=== PATIENT | female | born 1945 | race Caucasian/White ===

== ENCOUNTER 2020-09-10 08:37 | Outpatient (REF) | payer MEDICARE, OTHER, SELFPAY ==
--- NOTE | 2020-09-10 | MM_ITS ---
EXAMINATION: MM SCREENING DIGITAL BREAST TOMOSYNTHESIS, BILATERAL CLINICAL INFORMATION: Screening. Asymptomatic. Family history breast cancer in daughter. Patient notes weight loss 2018. The lifetime risk of breast cancer based on the Tyrer-Cuzick Model is 4%. COMPARISON: Mammography: 09/05/2019, 08/27/2018, 08/09/2017,, 07/26/2017, 820 01/20/2020 TECHNIQUE: Digital breast tomosynthesis is performed in both the craniocaudal and mediolateral oblique views along with computer-aided detection (CAD). Synthesized 2D images are generated from the tomosynthesis. FINDINGS: The breasts are heterogeneously dense, which may obscure small masses (ACR BI-RADS breast composition Category c). There is a fibronodular parenchymal pattern. There is no abnormal calcification. The skin contours are smooth. There is increased parenchymal density in decreased breast size consistent with the weight loss noted in the clinical history. The left breast shows no interval mass or architectural abnormality. The right MLO view has 2 adjacent accentuated nodular asymmetric densities posterior upper quadrant around 7 cm from nipple. May be related to incompletely compressed glandular tissue. Patient will be recalled for additional imaging. IMPRESSION: 1. Right: Asymmetric densities posterior upper breast on MLO view, possibly incompletely compressed glandular tissue. 2. Left: No mammographic evidence of malignancy. ASSESSMENT: BI-RADS 0: Incomplete - Need Additional Imaging Evaluation RECOMMENDATION: 1. Additional views of the right breast (small spot MLO, standard ML). 2. Targeted ultrasound if warranted after review of the additional views. 3. Radiology department staff will contact the patient for additional imaging. This patient's information was entered into a reminder system with a target due date for their next mammogram.
== END 2020-09-10 08:38 | disposition home or self-care (01) ==
LOC: HO.MAMMO 08:37
PROVIDERS: PCP Internal Medicine; Visit Provider Internal Medicine
DX: Z12.31 Encounter for screening mammogram for malignant neoplasm of breast (principal)
CPT/HCPCS: 77063; 77067

== ENCOUNTER → 2020-09-15 09:59 | Outpatient (BNVA) | payer MEDICARE, OTHER, SELFPAY | PROVIDERS: PCP Internal Medicine; Referring Provider Internal Medicine; Visit Provider Nurse Practitioner Family | DX: I65.23 Occlusion and stenosis of bilateral carotid arteries (principal); I10 Essential (primary) hypertension; E78.5 Hyperlipidemia, unspecified; I71.4 Abdominal aortic aneurysm, without rupture; F17.200 Nicotine dependence, unspecified, uncomplicated; Z79.899 Other long term (current) drug therapy; Z71.6 Tobacco abuse counseling | CPT/HCPCS: 99214 ==

== ENCOUNTER 2020-09-16 12:27 | Outpatient (REF) | payer MEDICARE, OTHER, SELFPAY ==
--- NOTE | 2020-09-16 12:31 | MM_ITS ---
EXAMINATION: MM DIAGNOSTIC DIGITAL BREAST TOMOSYNTHESIS, RIGHT CLINICAL INFORMATION: Recall from screening for 2 adjacent accentuated nodular asymmetric densities upper right breast likely related to incompletely compressed glandular tissue. COMPARISON: Mammography: 09/10/2020, 09/05/2019, 08/27/2018 TECHNIQUE: Digital breast tomosynthesis is performed. 2D images are generated from the tomosynthesis. The following views are obtained: ML x2, spot MLO x2. FINDINGS: The breasts are heterogeneously dense, which may obscure small masses (ACR BI-RADS breast composition Category c). Additional views show no persistent asymmetric densities. No mass or architectural abnormality. Results are discussed with the patient at time of visit. MM/MM tomosynthesis added views R IMPRESSION: Additional views show no persistent asymmetric densities in targeted area. ASSESSMENT: BI-RADS 1: Negative RECOMMENDATION: Routine annual mammography screening. This patient's information was entered into a reminder system with a target due date for their next mammogram.
== END 2020-09-16 12:28 | disposition home or self-care (01) ==
LOC: HO.MAMMO 12:27
PROVIDERS: Visit Provider Internal Medicine
DX: R92.2 Inconclusive mammogram (principal); N64.89 Other specified disorders of breast
CPT/HCPCS: 77065

== ENCOUNTER → 2021-03-08 12:24 | Outpatient (BNVA) | payer MEDICARE, OTHER, SELFPAY | PROVIDERS: PCP Internal Medicine; Visit Provider Internal Medicine Cardiovascular Disease | DX: I10 Essential (primary) hypertension (principal); I65.29 Occlusion and stenosis of unspecified carotid artery; I71.4 Abdominal aortic aneurysm, without rupture; F17.200 Nicotine dependence, unspecified, uncomplicated; Z71.6 Tobacco abuse counseling | CPT/HCPCS: 99212 ==

== ENCOUNTER 2021-07-27 06:18 | Outpatient (REF) | payer MEDICARE, OTHER, SELFPAY ==
[2021-07-27 11:16] LABS: MANUAL DIFF FLAG NO
[2021-07-27 11:27] LABS: Basophils Absolute Auto 0.1 X10*3/uL (0.0-0.2); Basophils Percent Auto 0.9 % (0-2); Eosinophils Absolute Auto 0.6 X10*3/uL (0.0-0.4); Eosinophils Percent Auto 5.9 % (0-4); Hematocrit 38.3 % (37-47); Imm Gran Abs Auto 0.04 X10*3/uL (0.00-0.03); Imm Gran Pct Auto 0.4 % (0.0-0.4); Lymphocytes Absolute Auto 3.3 X10*3/uL (1.2-4.9); Lymphocytes Percent Auto 31.9 % (20-40); Mean Corpuscular HGB Conc 33.9 g/dl (31.0-35.0); Mean Corpuscular Hemoglobin 31.4 pg (27.0-33.0); Mean Corpuscular Volume 92.5 fL (80-98); Mean Platelet Volume 10.4 fL (9.4-12.3); Monocytes Absolute Auto 0.9 X10*3/uL (0.1-1.2); Monocytes Percent Auto 8.8 % (2-11); Neutrophils Absolute Auto 5.3 X10*3/uL (2.0-8.3); Neutrophils Percent Auto 52.1 % (45-73); Platelet Count 326 X10*3/uL (160-400); Red Blood Count 4.14 X10*6/uL (4.20-5.50); Red Cell Distribution Width 13.6 % (11.0-16.0); White Blood Count 10.2 X10*3/uL (4.8-10.8)
[2021-07-27 12:02] LABS: Alanine Aminotransferase 16 U/L (0-31); Albumin Level 4.2 g/dL (3.5-5.0); Alkaline Phosphatase 68 U/L (39-117); Anion Gap 16 (12-20); Aspartate Amino Transferase 24 U/L (5-31); Bilirubin Total 0.7 mg/dL (0.0-1.0); Blood Urea Nitrogen 17 mg/dL (9-16); Calcium 10.2 mg/dL (8.4-10.2); Carbon Dioxide 27 mmol/L (22-29); Chloride 100 mmol/L (96-108); Cholesterol 182 mg/dL; Estimated Glomerular Filt Rate 47; Glucose Random 106 mg/dL (60-115); HDL Cholesterol 45 mg/dL; LDL Cholesterol Calculated 104 mg/dl; Potassium 3.9 mmol/L (3.3-5.1); Sodium 139 mmol/L (135-145); Total Protein 7.1 g/dL (6.5-8.0); Triglycerides 168 mg/dL
[2021-07-27 12:08] LABS: Free T4 (Free Thyroxine) 1.18 ng/dL (0.71-1.85); Vitamin D 25-OH Total 70.2 ng/mL (>30)
[2021-07-27 12:36] LABS: Folate > 20.0 ng/mL (> or = 4.0); Vitamin B12 > 2000 pg/mL (200-900)
== END 2021-07-27 06:19 | disposition home or self-care (01) ==
LOC: HO.HMGCLDS 06:18
PROVIDERS: PCP Internal Medicine; Visit Provider Internal Medicine
DX: I10 Essential (primary) hypertension (principal); E78.00 Pure hypercholesterolemia, unspecified
CPT/HCPCS: 36415; 80053; 80061; 82306; 82607; 82746; 84439; 84443; 85025

== ENCOUNTER → 2021-08-23 09:08 | Outpatient (BNVA) | payer MEDICARE, OTHER, SELFPAY | PROVIDERS: PCP Internal Medicine; Referring Provider Internal Medicine; Visit Provider Internal Medicine Cardiovascular Disease | DX: I65.29 Occlusion and stenosis of unspecified carotid artery (principal); I10 Essential (primary) hypertension | CPT/HCPCS: 93005; 99212 ==

== ENCOUNTER 2021-10-30 06:26 | Outpatient (REF) | payer MEDICARE, OTHER, SELFPAY ==
[2021-10-30 11:45] LABS: MANUAL DIFF FLAG NO
[2021-10-30 11:48] LABS: Basophils Absolute Auto 0.1 X10*3/uL (0.0-0.2); Basophils Percent Auto 0.9 % (0-2); Eosinophils Absolute Auto 0.6 X10*3/uL (0.0-0.4); Eosinophils Percent Auto 5.6 % (0-4); Hematocrit 36.5 % (37.0-47.0); Imm Gran Abs Auto 0.04 X10*3/uL (0.00-0.03); Imm Gran Pct Auto 0.4 % (0.0-0.4); Lymphocytes Absolute Auto 2.7 X10*3/uL (1.2-4.9); Lymphocytes Percent Auto 25.7 % (20-40); Mean Corpuscular HGB Conc 32.9 g/dl (31.0-35.0); Mean Corpuscular Hemoglobin 30.5 pg (27.0-33.0); Mean Corpuscular Volume 92.9 fL (80.0-98.0); Mean Platelet Volume 10.4 fL (9.4-12.3); Monocytes Percent Auto 9.6 % (2-11); Neutrophils Absolute Auto 6.1 x10*3/uL (2.0-8.3); Neutrophils Percent Auto 57.8 % (45-73); Platelet Count 328 X10*3/uL (160-400); Red Blood Count 3.93 X10*6/uL (4.20-5.50); Red Cell Distribution Width 13.7 % (11.0-16.0); White Blood Count 10.6 X10*3/uL (4.8-10.8)
[2021-10-30 12:19] LABS: Alanine Aminotransferase 15 U/L (0-31); Albumin Level 4.1 g/dL (3.5-5.0); Alkaline Phosphatase 66 U/L (39-117); Anion Gap 16 (12-20); Aspartate Amino Transferase 22 U/L (5-31); Bilirubin Total 0.6 mg/dL (0.0-1.0); Blood Urea Nitrogen 31 mg/dL (9-16); Calcium 9.8 mg/dL (8.4-10.2); Carbon Dioxide 27 mmol/L (22-29); Chloride 99 mmol/L (96-108); Cholesterol 175 mg/dL; Estimated Glomerular Filt Rate 32; Glucose Random 106 mg/dL (60-115); HDL Cholesterol 46 mg/dL; LDL Cholesterol Calculated 104 mg/dl; Potassium 3.6 mmol/L (3.3-5.1); Sodium 138 mmol/L (135-145); Total Protein 7.2 g/dL (6.5-8.0); Triglycerides 125 mg/dL
== END 2021-10-30 06:27 | disposition home or self-care (01) ==
LOC: HO.HMGCLDS 06:26
PROVIDERS: PCP Internal Medicine; Visit Provider Internal Medicine
DX: E78.00 Pure hypercholesterolemia, unspecified (principal)
CPT/HCPCS: 36415; 80053; 80061; 85025

== ENCOUNTER 2021-11-07 09:42 | Outpatient (REF) | payer MEDICARE, OTHER, SELFPAY ==
[2021-11-07 12:05] LABS: Anion Gap 13 (12-20); Blood Urea Nitrogen 16 mg/dL (9-16); Calcium 9.5 mg/dL (8.4-10.2); Carbon Dioxide 25 mmol/L (22-29); Chloride 104 mmol/L (96-108); Estimated Glomerular Filt Rate 51; Glucose Random 98 mg/dL (60-115); Potassium 4.2 mmol/L (3.3-5.1); Sodium 138 mmol/L (135-145)
== END 2021-11-07 09:43 | disposition home or self-care (01) ==
LOC: HO.HMGCLDS 09:42
PROVIDERS: PCP Internal Medicine; Visit Provider Internal Medicine
DX: N28.9 Disorder of kidney and ureter, unspecified (principal)
CPT/HCPCS: 36415; 80048

== ENCOUNTER 2022-01-10 13:02 | Outpatient (REF) | payer MEDICARE, OTHER, SELFPAY ==
--- NOTE | ~2022-01-10 | CT_ITS ---
EXAMINATION: CT CHEST SCREENING CLINICAL INFORMATION: Current smoker. 60 pack year history. COMPARISON: Previous chest CT May 2020 TECHNIQUE: Multidetector volumetric CT imaging of the chest is performed without contrast using low dose technique. Additional 2D coronal and sagittal reformatted images and axial 3D maximum intensity projection (MIP) images are generated on the CT workstation. This CT examination was performed using dose optimization techniques as appropriate, variously including the following: *Automated exposure control *Adjustment of mA and/or kV according to patient size (this includes techniques or standardized protocols for targeted exams where dose is matched to indication/reason for exam; i.e. extremities or head) *Use of iterative reconstruction technique DLP: 36 mGy-cm FINDINGS: LUNGS: There is evidence of severe emphysema. There is biapical pleural and parenchymal scarring and calcifications that is stable. There is a new 5 mm right upper lobe nodule axial image 163 series 5. There are new abnormal clustered linear parenchymal densities in the right upper lobe and slight nodular component. Largest nodular component measures 5 mm axial image 183 series 5. There is a new heterogeneous or semisolid peripheral or subpleural nodule in the anterior left upper lobe measuring 6 mm axial image 194 series 5. Pulmonary nodules are otherwise stable. MEDIASTINUM: The heart does not appear enlarged. There is coronary artery calcification. The thoracic aorta is tortuous and upper normal in size. There is no pericardial effusion. There are no enlarged hilar or mediastinal lymph nodes. PLEURA: There is no pleural effusion. No pleural mass or thickening. AXILLA: No lymphadenopathy. UPPER ABDOMEN: There is an abdominal aortic aneurysm and aortic stent graft. This is only partially visualized. OSSEOUS STRUCTURES: There are degenerative changes of the spine and scoliosis. CT/CT lung screening IMPRESSION: Severe emphysema. Stable biapical pleural-parenchymal scarring and calcification. New bilateral upper lobe nodules, largest a semisolid nodule measuring 6 mm in the left upper lobe. Otherwise pulmonary nodules are stable. Coronary artery calcification. Tortuous and upper normal-size thoracic aorta. ASSESSMENT: Lung-RADS category 3: Probably Benign RECOMMENDATION: Six-month low-dose chest CT follow-up recommended.
== END 2022-01-10 13:03 | disposition home or self-care (01) ==
LOC: HO.CT 13:02
PROVIDERS: PCP Internal Medicine; Visit Provider Physician Assistant Medical
DX: Z12.2 Encounter for screening for malignant neoplasm of respiratory organs (principal); Z87.891 Personal history of nicotine dependence
CPT/HCPCS: 71271

== ENCOUNTER → 2022-08-27 09:07 | Outpatient (BNVA) | payer MEDICARE, OTHER, SELFPAY | PROVIDERS: PCP Internal Medicine; Referring Provider Internal Medicine; Visit Provider Internal Medicine Cardiovascular Disease | DX: I10 Essential (primary) hypertension (principal); I65.23 Occlusion and stenosis of bilateral carotid arteries; F17.210 Nicotine dependence, cigarettes, uncomplicated; Z79.82 Long term (current) use of aspirin; Z79.899 Other long term (current) drug therapy | CPT/HCPCS: 93005; 99212 ==

== ENCOUNTER 2022-08-28 06:12 | Outpatient (REF) | payer MEDICARE, OTHER, SELFPAY ==
[2022-08-28 11:59] LABS: Anion Gap 17 (12-20); Blood Urea Nitrogen 16 mg/dL (9-16); Calcium 9.5 mg/dL (8.4-10.2); Carbon Dioxide 24 mmol/L (22-29); Chloride 104 mmol/L (96-108); Estimated Glomerular Filt Rate 49; Glucose Random 119 mg/dL (60-115); Potassium 4.4 mmol/L (3.3-5.1); Sodium 141 mmol/L (135-145)
== END 2022-08-28 06:13 | disposition home or self-care (01) ==
LOC: HO.HMGCLDS 06:12
PROVIDERS: PCP Internal Medicine; Visit Provider Internal Medicine Cardiovascular Disease
DX: I10 Essential (primary) hypertension (principal)
CPT/HCPCS: 36415; 80048

== ENCOUNTER 2022-08-29 10:43 | Outpatient (REF) | payer MEDICARE, OTHER, SELFPAY ==
--- NOTE | ~2022-08-29 | CT_ITS ---
EXAMINATION: CT CHEST SCREENING CLINICAL INFORMATION: Current smoker. 60 pack year history. COMPARISON: Previous chest CT December 2021 TECHNIQUE: Multidetector volumetric CT imaging of the chest is performed without contrast using low dose technique. Additional 2D coronal and sagittal reformatted images and axial 3D maximum intensity projection (MIP) images are generated on the CT workstation. This CT examination was performed using dose optimization techniques as appropriate, variously including the following: *Automated exposure control *Adjustment of mA and/or kV according to patient size (this includes techniques or standardized protocols for targeted exams where dose is matched to indication/reason for exam; i.e. extremities or head) *Use of iterative reconstruction technique DLP: 107 mGy-cm FINDINGS: LUNGS: The previously identified 5 mm right upper lobe nodule that was new on December 2021 exam is no longer seen. The previously identified abnormal parenchymal density with 5 mm nodular component in the right upper lobe that was new on December 2021 exam is no longer seen. The previously identified heterogeneous peripheral anterior segment left upper lobe nodule that was new on December 2021 exam appears decreased in size now measuring 2 x 5 mm axial image 212 series 6 compared to 5 x 5 mm on December 2021 exam. There is a new 4 mm left lower lobe nodule axial image 257 series 6. Otherwise bilateral pulmonary nodules are stable, largest a partially calcified pleural and parenchymal density in the lateral right upper lobe with some calcifications. Nodular component measures 7 mm axial image 146 series 6. There is biapical pleural and parenchymal scarring and calcification that is stable. There is evidence of severe emphysema. No endobronchial or endotracheal lesion. MEDIASTINUM: Normal thyroid gland. Normal heart size. Upper normal-size proximal thoracic aorta. Mild dilatation of the distal thoracic aorta measuring 3.5 x 3.6 cm. This is not appreciably changed from recent exams but this is gradually increasing compared to remote older exams, for example measuring 3 x 3.3 cm 04/13/2019. No enlarged hilar or mediastinal lymph nodes. CORONARY ARTERY CALCIFICATION: Mild PLEURA: There is no pleural effusion. No pleural mass or thickening. AXILLA: No lymphadenopathy. UPPER ABDOMEN: Abdominal aortic stent graft partially visualized. There is question of a small stone in the upper pole of the left kidney. There may be diverticulosis of the colon. OSSEOUS STRUCTURES: Thoracolumbar scoliosis and degenerative changes. CT/CT lung screen follow up IMPRESSION: Severe emphysema. The 2 right upper lobe nodules that were new on most recent chest CT exam December 2021 are no longer seen. There is interval decrease in size in the left upper lobe nodule that was new compared to December 2021 exam. New 4 mm left lower lobe nodule. Otherwise bilateral pulmonary nodules are stable. Severe emphysema. Stable biapical pleural and parenchymal scarring. ASSESSMENT: Lung-RADS category 2: Benign RECOMMENDATION: Annual low-dose chest CT follow-up recommended.
== END 2022-08-29 10:44 | disposition home or self-care (01) ==
LOC: HO.CT 10:43
PROVIDERS: Visit Provider Physician Assistant Medical
DX: Z12.2 Encounter for screening for malignant neoplasm of respiratory organs (principal); Z87.891 Personal history of nicotine dependence
CPT/HCPCS: 71250

== ENCOUNTER → 2022-09-14 08:40 | Outpatient (BNVA) | payer MEDICARE, OTHER, SELFPAY | PROVIDERS: PCP Internal Medicine; Visit Provider Surgery | DX: R91.1 Solitary pulmonary nodule (principal); Z87.891 Personal history of nicotine dependence | CPT/HCPCS: Q3014 ==

== ENCOUNTER 2022-11-06 06:07 | Outpatient (REF) | payer MEDICARE, OTHER, SELFPAY ==
[2022-11-06 11:52] LABS: MANUAL DIFF FLAG NO
[2022-11-06 12:22] LABS: Basophils Absolute Auto 0.1 X10*3/uL (0.0-0.2); Basophils Percent Auto 0.9 % (0-2); Eosinophils Absolute Auto 0.4 X10*3/uL (0.0-0.4); Eosinophils Percent Auto 4.3 % (0-4); Hematocrit 40.4 % (37.0-47.0); Hemoglobin 13.2 g/dl (12.0-16.0); Imm Gran Abs Auto 0.02 X10*3/uL (0.00-0.03); Imm Gran Pct Auto 0.2 % (0.0-0.4); Lymphocytes Absolute Auto 2.4 X10*3/uL (1.2-4.9); Mean Corpuscular HGB Conc 32.7 g/dl (31.0-35.0); Mean Corpuscular Hemoglobin 30.6 pg (27.0-33.0); Mean Corpuscular Volume 93.7 fL (80.0-98.0); Mean Platelet Volume 10.3 fL (9.4-12.3); Monocytes Absolute Auto 0.8 X10*3/uL (0.1-1.2); Monocytes Percent Auto 8.3 % (2-11); Neutrophils Absolute Auto 5.7 x10*3/uL (2.0-8.3); Neutrophils Percent Auto 60.3 % (45-73); Platelet Count 318 X10*3/uL (160-400); Red Blood Count 4.31 X10*6/uL (4.20-5.50); Red Cell Distribution Width 13.7 % (11.0-16.0); White Blood Count 9.4 X10*3/uL (4.8-10.8)
[2022-11-06 13:04] LABS: Alanine Aminotransferase 18 U/L (0-31); Albumin Level 4.2 g/dL (3.5-5.0); Alkaline Phosphatase 73 U/L (39-117); Anion Gap 12 (12-20); Aspartate Amino Transferase 27 U/L (5-31); Bilirubin Total 0.5 mg/dL (0.0-1.0); Blood Urea Nitrogen 20 mg/dL (9-16); Carbon Dioxide 28 mmol/L (22-29); Chloride 107 mmol/L (96-108); Cholesterol 177 mg/dL; Estimated Glomerular Filt Rate 54; Free T4 (Free Thyroxine) 1.11 ng/dL (0.71-1.85); Glucose Random 108 mg/dL (60-115); Potassium 4.7 mmol/L (3.3-5.1); Sodium 142 mmol/L (135-145); Thyroid Stimulating Hormone 4.07 uIU/mL (0.32-4.0); Total Protein 7.2 g/dL (6.5-8.0); Triglycerides 124 mg/dL; Vitamin D 25-OH Total 70.2 ng/mL (>30)
[2022-11-06 13:12] LABS: Folate 18.8 ng/mL (> or = 4.0); Vitamin B12 > 2000 pg/mL (200-900)
[2022-11-06 13:39] LABS: HDL Cholesterol 51 mg/dL; LDL Cholesterol Calculated 102 mg/dl
== END 2022-11-06 06:08 | disposition home or self-care (01) ==
LOC: HO.HMGCLDS 06:07
PROVIDERS: PCP Internal Medicine; Visit Provider Internal Medicine
DX: E78.00 Pure hypercholesterolemia, unspecified (principal)
CPT/HCPCS: 36415; 80053; 80061; 82306; 82607; 82746; 84439; 84443; 85025

== ENCOUNTER 2022-12-20 08:33 | Outpatient (REF) | payer MEDICARE, OTHER, SELFPAY ==
--- NOTE | ~2022-12-20 | MM_ITS ---
EXAMINATION: BONE DENSITOMETRY CLINICAL INDICATION: Osteoporosis. COMPARISON: Previous BD dated 09/09/2018 and baseline BD dated 10/13/2007. CT chest 06/16/2020. TECHNIQUE: Using a [employer] DXA System (software version: 13.1) manufactured by [employer], dual-energy x-ray absorptiometry was performed of the lumbar spine and left hip. The images are of good technical quality. Summary results are attached. FINDINGS: AP SPINE L1-L4: There is an intra-aortic stent graft seen overlying the left paralumbar region. Current: BMD 0.540 g/cm2, Z-score -2.5, T-score -5.3, osteoporosis, 21.4% decrease from previous, 28.3% decrease from baseline (<5% change is not significant). Prior: BMD 0.687 g/cm2. Baseline: BMD 0.753 g/cm2. LEFT FEMUR, NECK: Current: BMD 0.605 g/cm2, Z-score -0.4, T-score -3.1, osteoporosis. Prior: BMD 0.739 g/cm2. Baseline: BMD 0.774 g/cm2. LEFT FEMUR, TOTAL: Current: BMD 0.626 g/cm2, Z-score -0.5, T-score -3.0, osteoporosis, 13.4% decrease from previous, 21.6% decrease from baseline (<5% change is not significant). Prior: BMD 0.723 g/cm2. Baseline: BMD 0.798 g/cm2. IDENTIFIED RISK FACTORS: Osteoporosis. Current smoker. Low body weight for height. Secondary osteoporosis (early menopause). HISTORY OF FRACTURE: Humerus. MEDICATIONS: Vitamin D. MM/XR DEXA axial skeleton IMPRESSION: 1. DIAGNOSIS: Osteoporosis based on the lowest T-score value of -5.3 in the lumbar spine applying World Health Organization criteria. 2. 10-YEAR FRACTURE RISK PREDICTION, FRAX: According to the guidelines, FRAX calculation should only be performed on patients in the osteopenia bone density category. Therefore, FRAX was not performed on this patient.? 3. Treatment Recommendations: NOF guidelines recommend consideration for treatment in postmenopausal women and men age 50 and older presenting with the following: -A hip or vertebral (clinical or morphometric) fracture. -T-score less than or equal to -2.5 at the femoral neck or spine after appropriate evaluation to exclude secondary causes. -Low bone mass at the hip or spine and a 10-year fracture probability by FRAX of greater than or equal to 3% for hip fracture or greater than or equal to 20% for major osteoporotic fracture based on the [place] adapted WHO algorithm. 4. Other Recommendations: All treatment decisions require clinical judgment and consideration of individual patient factors, including patient preferences, comorbidities, previous drug use, risk factors not captured in the FRAX model (e.g. frailty, falls, vitamin D deficiency, increased bone turnover, interval significant decline in bone density) and possible under or overestimation of fracture risk by FRAX. Additional medical evaluation for secondary cause of low bone mineral density may be appropriate. FUTURE SCAN RECOMMENDATION: People with diagnosed cases of osteoporosis or at high risk for fracture should have regular bone mineral density tests. For patients eligible for Medicare, routine testing is allowed once every 2 years. The testing frequency can be increased to one year for patients who have rapidly progressing disease, those who are receiving or discontinuing medical therapy to restore bone mass, or have additional risk factors.
== END 2022-12-20 08:34 | disposition home or self-care (01) ==
LOC: HO.MAMMO 08:33
PROVIDERS: PCP Internal Medicine; Visit Provider Internal Medicine
DX: M81.0 Age-related osteoporosis without current pathological fracture (principal)
CPT/HCPCS: 77080

== ENCOUNTER 2023-02-11 06:06 | Outpatient (REF) | payer MEDICARE, OTHER, SELFPAY ==
[2023-02-11 12:53] LABS: Alanine Aminotransferase 18 U/L (0-31); Albumin Level 4.1 g/dL (3.5-5.0); Alkaline Phosphatase 70 U/L (39-117); Anion Gap 16 (12-20); Aspartate Amino Transferase 28 U/L (5-31); Bilirubin Total 0.6 mg/dL (0.0-1.0); Blood Urea Nitrogen 21 mg/dL (9-16); Calcium 9.7 mg/dL (8.4-10.2); Carbon Dioxide 27 mmol/L (22-29); Chloride 103 mmol/L (96-108); Cholesterol 150 mg/dL; Estimated Glomerular Filt Rate 43; Glucose Random 105 mg/dL (60-115); HDL Cholesterol 49 mg/dL; LDL Cholesterol Calculated 79 mg/dl; Potassium 4.6 mmol/L (3.3-5.1); Sodium 141 mmol/L (135-145); Total Protein 7.1 g/dL (6.5-8.0); Triglycerides 110 mg/dL
[2023-02-11 12:55] LABS: Free T4 (Free Thyroxine) 1.01 ng/dL (0.71-1.85)
== END 2023-02-11 06:07 | disposition home or self-care (01) ==
LOC: HO.HMGCLDS 06:06
PROVIDERS: PCP Internal Medicine; Visit Provider Internal Medicine
DX: R79.89 Other specified abnormal findings of blood chemistry (principal); E78.00 Pure hypercholesterolemia, unspecified
CPT/HCPCS: 36415; 80053; 80061; 84439; 84443

== ENCOUNTER → 2023-03-04 09:05 | Outpatient (BNVA) | payer MEDICARE, OTHER, SELFPAY | PROVIDERS: PCP Internal Medicine; Referring Provider Internal Medicine; Visit Provider Internal Medicine Cardiovascular Disease | DX: I65.23 Occlusion and stenosis of bilateral carotid arteries (principal); I10 Essential (primary) hypertension; F17.210 Nicotine dependence, cigarettes, uncomplicated | CPT/HCPCS: 99212 ==

== ENCOUNTER 2023-05-13 09:24 | Outpatient (REF) | payer MEDICARE, MEDICAID, SELFPAY ==
[2023-05-13 12:16] LABS: Free T4 (Free Thyroxine) 1.15 ng/dL (0.71-1.85); Thyroid Stimulating Hormone 2.93 uIU/mL (0.32-4.0)
== END 2023-05-13 09:25 | disposition home or self-care (01) ==
LOC: HO.HMGCLDS 09:24
PROVIDERS: PCP Internal Medicine; Visit Provider Internal Medicine
DX: R94.6 Abnormal results of thyroid function studies (principal)
CPT/HCPCS: 36415; 84439; 84443

== ENCOUNTER 2023-09-12 15:29 | Outpatient (REF) | payer MEDICARE, SELFPAY ==
--- NOTE | ~2023-09-12 | CT_ITS ---
EXAMINATION: CT CHEST SCREENING CLINICAL INFORMATION: 61 pack year smoking history COMPARISON: Previous CTs, most recent, 08/29/2022 TECHNIQUE: Multidetector volumetric CT imaging of the chest is performed without contrast using low dose technique. Additional 2D coronal and sagittal reformatted images and axial 3D maximum intensity projection (MIP) images are generated on the CT workstation. This CT examination was performed using dose optimization techniques as appropriate, variously including the following: *Automated exposure control *Adjustment of mA and/or kV according to patient size (this includes techniques or standardized protocols for targeted exams where dose is matched to indication/reason for exam; i.e. extremities or head) *Use of iterative reconstruction technique DLP: 32 mGy-cm FINDINGS: FLIGHT NURSE: Cachexia. Emphysema. Thoracolumbar scoliosis and abdominal aortic stent graft. LUNGS: Trachea and bronchi are patent. Advanced centrilobular emphysema. Unchanged biapical pleural parenchymal scarring. Right upper lobe lateral pleural parenchymal nodular scarring is unchanged. 5 mm left upper lobe and 4 mm left lower lobe nodules on previous study are no longer seen. MEDIASTINUM: No pathologic lymphadenopathy. Heart is not enlarged. Degree of coronary calcifications: Moderate. No pericardial effusion. Atherosclerotic calcifications ectatic thoracic aorta. Nonenlarged pulmonary arteries. PLEURA: There is no pleural effusion. No pleural mass or thickening. AXILLA: No lymphadenopathy. UPPER ABDOMEN: Aortic stent graft. Punctate left upper pole nonobstructing calculus versus vascular calcification. OSSEOUS STRUCTURES: Thoracolumbar scoliosis. No suspicious osseous lesions. CT/CT lung screening IMPRESSION: Stable advanced emphysema and pleural parenchymal scarring. Resolution of previous lung nodules. ASSESSMENT: Lung-RADS category 1: Negative RECOMMENDATION: Routine annual low-dose CT screening in 12 months.
== END 2023-09-12 15:30 | disposition home or self-care (01) ==
LOC: HO.CT 15:29
PROVIDERS: PCP Internal Medicine; Visit Provider Surgery
DX: Z12.2 Encounter for screening for malignant neoplasm of respiratory organs (principal); Z87.891 Personal history of nicotine dependence
CPT/HCPCS: 71271

== ENCOUNTER 2023-11-22 08:38 | Outpatient (AMB) | payer MEDICARE, SELFPAY ==
[2023-11-22 08:39] VITALS: BP 122/80; PULSE 62; BMI 12.8
--- NOTE | 2023-11-22 08:39 | A.OFFPC_ITS ---
Vital Signs 11/22/23 08:39 Height 5 ft 3 in Weight 72 lb 0.8 oz BMI 12.8 BP 122/80 Blood Pressure Location Lt brachial Position Sitting Pulse 62 Pulse Source Pulse Oximeter Oxygen Delivery Method Room Air Intake Visit Reasons: smoker, COPD, HTN Application Packager Required: No Allergies No Known Allergies [No Known Allergies*] Allergy (Verified 11/22/23 08:40) Medication List - Last Reconciled 11/22/23 by Camilo Quiñones MD amlodipine 10 mg PO DAILY aspirin (Adult Low Dose Aspirin) 81 mg PO DAILY atorvastatin 80 mg PO DAILY benzonatate 200 mg PO BID-TID PRN cholecalciferol (vitamin D3) 25 mcg PO DAILY ezetimibe 10 mg PO DAILY folic acid 0.8 mg PO DAILY vitamin [id number] acid 1,000-400 mcg shaggy sublingual Tobacco use date assessed: 11/22/23 Fall risk assessment: No Falls in past year Last assessed Fall Risk: 11/22/23 HPI smoker, COPD, HTN HPI Details 78-year-old female smoker with COPD hype rcholesterolemia hypertension carotid stenosis last seen in April 2023. Patient is here for follow-up up-to-date with bone density showing osteoporosis. With smoking history CT scan follow-up August 2023 showing stable advanced emphysema and pleural parenchymal scarring resolution of previous lung nodules.- sick , coughing 1 week ago congested. mno sore throat, has been productive- last cigarette this am. [facility] Medical History (Updated 11/22/23 @ 09:02 by Camilo Quiñones MD) Osteoporosis Colonoscopy refused Mammogram declined Personal history of nicotine dependence Underweight Renal calculi Fracture, humerus Hypercholesterolemia HTN (hypertension) Carotid stenosis Osteoporosis (~2013) AAA (abdominal aortic aneurysm) Surgical History H/O tubal ligation History of cataract surgery History of AAA (abdominal aortic aneurysm) repair (~2019) Family History (Updated 05/24/23 @ 08:26 by Kimberly Manzo CMA) Father Medical history unknown Mother Cancer Brother No problems noted. Brother No problems noted. Brother No problems noted. Sister No problems noted. Sister No problems noted. Sister No problems noted. Daughter No problems noted. Daughter No problems noted. Daughter No problems noted. Social History (Updated 03/04/23 @ 09:19 by JOCELIN Salamanca) Housing: Apartment Alcohol intake: current Alcohol intake frequency: holidays/special occasions only Patient Tobacco Use Status: Current everyday Tobacco user Tobacco use type: Cigarette Cigarette Packs Per Day: 0.5 Cigarettes Per Day: 10 Years Smoked: 50 +/- Packs Per Year: 0 Packs per year/per ci.00 e-Cigarette/Vaping Use: Never Used Second Hand Smoke Exposure: No service: No Current occupational status: retired Cognitive needs: No Hearing needs: No Vision needs: Yes Questionnaire Thrive Questionnaire Date Thrive assessed: 02/14/23 AUDIT C Alcohol Use Questionnaire (AUDIT-C) 1. How often do you have a drink containing alcohol?: Monthly or less 2. How many drinks containing alcohol do you have on a typical day when you are drinking?: 1 or 2 3. How often do you have six or more drinks on one occasion?: Never Total Score: 1 MESSI-7 AMB Questionnaire MESSI-7 Date MESSI - 7 assessed: 05/24/23 Source: Developed by Drs. Ramesh Youngblood, Melyssa Bergeron, Oliver Hendricks and colleagues, with an educational saw from [employer]. Physical exam (Primary Care) Vital Signs: Last Vital Signs Pulse 62 11/22/23 08:39 BP 122/80 11/22/23 08:39 Oxygen Delivery Method Room Air 11/22/23 08:39 BMI result Body Mass Index 12.8 Tobacco/Smoking Status: Tobacco use Status Tobacco use date assessed 11/22/23 11/22/23 08:42 Patient Tobacco Use Status Current everyday Tobacco 11/22/23 08:42 Tobacco use type Cigarette 11/22/23 08:42 e-Cigarette/Vaping Use Never Used 11/22/23 08:42 Thrive Assessment: Date of Thrive Assessment Date Thrive assessed 02/14/23 11/22/23 08:42 Const General: alert; No acute distress Eyes Conjunctivae: conjunctivae normal Resp Auscultation: clear to auscultation bilaterally Cardio Rate: regular rate Rhythm: regular rhythm GI Inspection: Yes normal to inspection Extrem General: Yes normal to inspection and No edema Assessment and Plan Assessment & Plan (1) COPD (chronic obstructive pulmonary disease): Code(s): J44.9 - Chronic obstructive pulmonary disease, unspecified Plan: Patient strongly advised to stop smoking! Continue with monitoring as the patient has not been using any inhalers (2) Tobacco abuse: Comment: Seven cigarettes a day January 2023, CT scan August 2023 Code(s): Z72.0 - Tobacco use Plan: Patient is strongly advised to stop smoking. Patient on the lung cancer screening program and up-to-date August 2023 (3) Hypercholesterolemia: Code(s): E78.00 - Pure hypercholesterolemia, unspecified Plan: Avoid fried foods, chicken skin, eggs, butter margarine, pastries and meat. Be it pork or beef they have a lot of cholesterol on Zetia right now and atorvastatin 80 mg once a day LDL goal of less than 130 (4) HTN (hypertension): Code(s): I10 - Essential (primary) hypertension Qualifiers: Hypertension type: essential hypertension Qualified Code(s): I10 - Essential (primary) hypertension Plan: Continue with blood pressure medication. Decrease salt intake and exercise continue with amlodipine 10 mg once a day (5) Osteoporosis: Onset Date: ~2013 Comment: (Bone Dexa Lumbar T-score -4.1 09/09/18) November 2022 Code(s): M81.0 - Age-related osteoporosis without current pathological fracture Plan: Keep active take vitamin-D and calcium rich foods. (6) Upper respiratory infection: Code(s): J06.9 - Acute upper respiratory infection, unspecified Orders: Orders Lipid Panel Today E78.00 - Pure hypercholesterolemia, unspecified Vitamin B12 and Folate Today E78.00 - Pure hypercholesterolemia, unspecified Vitamin D 25-OH Total Today E78.00 - Pure hypercholesterolemia, unspecified Comprehensive Met. Panel Today E78.00 - Pure hypercholesterolemia, unspecified Complete Blood Count Auto Diff Today E78.00 - Pure hypercholesterolemia, unspecified Free T4 (Free Thyroxine) Today E78.00 - Pure hypercholesterolemia, unspecified Thyroid Stimulating Hormone Today E78.00 - Pure hypercholesterolemia, unspecified Medications: New benzonatate 200 mg PO BID-TID PRN 20 caps 0RF cough J06.9 - Acute upper respiratory infection, unspecified Refilled atorvastatin 80 mg PO DAILY 90 tabs 3RF E78.00 - Pure hypercholesterolemia, unspecified ezetimibe 10 mg PO DAILY 90 tabs 1RF E78.00 - Pure hypercholesterolemia, unspecified Coding Level of Care Code Est Pt Level 4 (56135) Diagnoses COPD (chronic obstructive pulmonary disease) J44.9 Tobacco abuse Z72.0 Hypercholesterolemia E78.00 Essential hypertension I10 Hypertension type: essential hypertension Osteoporosis M81.0 Upper respiratory infection J06.9
== END 2023-11-22 09:05 | disposition home or self-care (01) ==
PROVIDERS: PCP Internal Medicine; Visit Provider Internal Medicine
DX: J44.9 Chronic obstructive pulmonary disease, unspecified (principal); Z72.0 Tobacco use; E78.00 Pure hypercholesterolemia, unspecified; I10 Essential (primary) hypertension; M81.0 Age-related osteoporosis without current pathological fracture; J06.9 Acute upper respiratory infection, unspecified
CPT/HCPCS: 99214

== ENCOUNTER 2024-03-10 09:14 | Outpatient (AMB) | payer MEDICARE, SELFPAY ==
[2024-03-10 09:14] VITALS: BP 112/70; PULSE 111; TEMP 36.4; O2SAT 97; BMI 13.3
--- NOTE | 2024-03-10 09:14 | MHC.OFFWIV ---
Intake Vital Signs 03/10/24 09:14 Height 5 ft 3 in Weight 75 lb BMI 13.3 BP 112/70 Blood Pressure Location Lt brachial Position Sitting Pulse 111 H Pulse Source Pulse Oximeter Temp 97.6 F Temp Source Temporal Artery Scan Pulse Oximetry (%) 97 Oxygen Delivery Method Room Air Intake Visit Reasons: EP RT side neck pain radiates down arm (lobby) Intake Note: pt is here today for rt side neck pain radiates down arm started 2 weeks ago Patient Tobacco Use Status: Current everyday Tobacco user Allergies No Known Allergies [No Known Allergies*] Allergy (Verified 03/10/24 09:38) Medication List - Last Reconciled 03/10/24 by Zafar Glynn MD amlodipine 10 mg PO DAILY aspirin (Adult Low Dose Aspirin) 81 mg PO DAILY atorvastatin 80 mg PO DAILY cholecalciferol (vitamin D3) 25 mcg PO DAILY ezetimibe 10 mg PO DAILY folic acid 0.8 mg PO DAILY vitamin Z78-wxpdi acid 1,000-400 mcg shaggy sublingual Do you need a note to return to daycare/school/sports/work: No HPI EP RT side neck pain radiates down arm (lobby) HPI Details 79-year-old female presents to the office for a sick visit. Patient is reporting symptoms of pain in the neck and right side of the arm and shoulder for the past 2 weeks. Symptoms started on its own 2 weeks ago. She reports stiffness on the right side of her neck. Reports symptoms of pain in the elbow and forearm. Able to function and do all activities of living. No fall or trauma. [facility] Medical History (Updated 11/22/23 @ 09:02 by Camilo Quiñones MD) Osteoporosis Colonoscopy refused Mammogram declined Personal history of nicotine dependence Underweight Renal calculi Fracture, humerus Hypercholesterolemia HTN (hypertension) Carotid stenosis Osteoporosis (~2013) AAA (abdominal aortic aneurysm) Surgical History H/O tubal ligation History of cataract surgery History of AAA (abdominal aortic aneurysm) repair (~2019) Family History (Updated 05/24/23 @ 08:26 by Kimberly Manzo CMA) Father Medical history unknown Mother Cancer Brother No problems noted. Brother No problems noted. Brother No problems noted. Sister No problems noted. Sister No problems noted. Sister No problems noted. Daughter No problems noted. Daughter No problems noted. Daughter No problems noted. Social History (Updated 03/04/23 @ 09:19 by JOCELIN Salamanca) Housing: Apartment Alcohol intake: current Alcohol intake frequency: holidays/special occasions only Patient Tobacco Use Status: Current everyday Tobacco user Tobacco use type: Cigarette Cigarette Packs Per Day: 0.5 Cigarettes Per Day: 10 Years Smoked: 50 +/- e-Cigarette/Vaping Use: Never Used Second Hand Smoke Exposure: No service: No Current occupational status: retired Cognitive needs: No Hearing needs: No Vision needs: Yes Physical Exam Vital Signs: Last Vital Signs Temp 97.6 F 03/10/24 09:14 Pulse 111 H 03/10/24 09:14 BP 112/70 03/10/24 09:14 Pulse Ox 97 03/10/24 09:14 Oxygen Delivery Method Room Air 03/10/24 09:14 BMI result Body Mass Index 13.3 Const General: cooperative and healthy appearing Nutritional Appearance: well nourished Orientation/consciousness: patient oriented x3 Limitations: no limitations HEENT Head: Yes normal to inspection Eyes General: appearance normal, both eyes and all related structures Neck Neck: Yes normal visual inspection Chest Chest palpation & inspection: normal palpation of entire chest wall Resp Effort & Inspection: normal respiratory effort Neuro General: patient oriented x3 Extrem Other: Neck: No C-spine tenderness. Full range of motion of the neck. Right shoulder: Full range of motion including internal and external rotation. Assessment & Plan Assessment & Plan (1) Sprain of right shoulder: Code(s): S43.401A - Unspecified sprain of right shoulder joint, initial encounter Plan X-ray images personally reviewed by me. Evidence of old healed surgical neck fracture. Meloxicam and cyclobenzaprine called in. Advised to take the medications with food. Heating pad suggested. If sx do not improve, to follow up here. Orders: Orders XR shoulder RT min 2V Today S43.401A - Unspecified sprain of right shoulder joint, initial encounter Coding Level of Care Code Est Pt Level 4 (71859) Diagnoses Sprain of right shoulder S43.401A
== END 2024-03-10 10:32 | disposition home or self-care (01) ==
PROVIDERS: PCP Internal Medicine; Visit Provider Internal Medicine
DX: S43.401A Unspecified sprain of right shoulder joint, initial encounter (principal)
CPT/HCPCS: 99214

== ENCOUNTER 2024-03-10 09:32 | Outpatient (REF) | payer MEDICARE, SELFPAY ==
--- NOTE | ~2024-03-10 | XR_ITS ---
EXAMINATION: XR SHOULDER, RIGHT CLINICAL INFORMATION: Right shoulder sprain COMPARISON: Right shoulder 06/02/2014, report only TECHNIQUE: 3 views of of the right shoulder. FINDINGS: There is an old healed fracture of the right humeral neck. No acute fracture or dislocation is seen. Some mild degenerative changes are present at the AC joint. No significant narrowing is seen of the glenohumeral joint. No rib fractures are seen. XR/XR shoulder RT min 2V IMPRESSION: Old healed right humeral neck fracture. No acute finding.
== END 2024-03-10 09:33 | disposition home or self-care (01) ==
LOC: HO.HMGCX 09:32
PROVIDERS: PCP Internal Medicine; Visit Provider Internal Medicine
DX: S43.401A Unspecified sprain of right shoulder joint, initial encounter (principal); X58.XXXA Exposure to other specified factors, initial encounter
CPT/HCPCS: 73030

== ENCOUNTER 2024-03-25 10:40 | Outpatient (AMB) | payer MEDICARE, SELFPAY ==
[2024-03-25 10:43] VITALS: BP 96/62; PULSE 97; BMI 13.3
--- NOTE | 2024-03-25 10:43 | MHC.OFFVIS ---
Vital Signs 03/25/24 10:43 Height 5 ft 3 in Weight 74 lb 15.315 oz BMI 13.3 BP 96/62 Blood Pressure Location Lt brachial Position Sitting Pulse 97 Intake Visit Reasons: 1 year follow-up Intake Note: pt state that she its doing fine Coke Oven Patcher Required: No Accompanied by: Self / Same As Patient Allergies No Known Allergies [No Known Allergies*] Allergy (Verified 03/10/24 09:38) Medication List - Last Reconciled 03/25/24 by Juancho Chester MD amlodipine 10 mg PO DAILY aspirin (Adult Low Dose Aspirin) 81 mg PO DAILY atorvastatin 80 mg PO DAILY cholecalciferol (vitamin D3) 25 mcg PO DAILY cyclobenzaprine 10 mg PO BEDTIME ezetimibe 10 mg PO DAILY folic acid 0.8 mg PO DAILY meloxicam 15 mg PO DAILY vitamin P51-gqxtn acid 1,000-400 mcg shaggy sublingual HPI Comments Details: Pleasant 79-year-old female here follow-up. She has background history of abdominal aortic aneurysm repair, tobacco abuse, hypertension, hyperlipidemia and COPD. She has bilateral moderate carotid disease. No neurological symptoms. She continues to smoke 7 cigarettes per day. She has no chest pain or shortness breath. Blood pressure control is good. Taking medications regularly. Stable on follow-up. Continues to smoke and does not plan to stop smoking. 03/25/24: 79-year-old female who is here for follow-up. She is denying any symptoms. She is doing household activities without any issues. She walks outside without any shortness of breath or chest pain. She is smoking up to 6 cigarettes per day. [facility] Medical History (Updated 11/22/23 @ 09:02 by Camilo Quiñones MD) Osteoporosis Colonoscopy refused Mammogram declined Personal history of nicotine dependence Underweight Renal calculi Fracture, humerus Hypercholesterolemia HTN (hypertension) Carotid stenosis Osteoporosis (~2013) AAA (abdominal aortic aneurysm) Surgical History H/O tubal ligation History of cataract surgery History of AAA (abdominal aortic aneurysm) repair (~2019) Family History Father Medical history unknown Mother Cancer Brother No problems noted. Brother No problems noted. Brother No problems noted. Sister No problems noted. Sister No problems noted. Sister No problems noted. Daughter No problems noted. Daughter No problems noted. Daughter No problems noted. Social History Housing: Apartment Alcohol intake: current Alcohol intake frequency: holidays/special occasions only Patient Tobacco Use Status: Current everyday Tobacco user Tobacco use type: Cigarette Cigarette Packs Per Day: 0.5 Cigarettes Per Day: 10 Years Smoked: 50 +/- e-Cigarette/Vaping Use: Never Used Second Hand Smoke Exposure: No service: No Current occupational status: retired Cognitive needs: No Hearing needs: No Vision needs: Yes Review of Systems Const Denies chills, Denies fatigue, Denies fever(s), Denies frequent falls, Denies weakness, Denies weight gain and Denies weight loss ENT Denies dizziness Card Denies chest pain, Denies leg edema, Denies lightheadedness, Denies palpitations, Denies dyspnea and Denies dyspnea on exertion Resp Denies cough, Denies dyspnea and Denies dyspnea on exertion GI Denies hematochezia Musc Denies abnormal gait, Denies muscle weakness, Denies numbness, Denies radiating pain into limb and Denies tingling Neuro Denies abnormal gait, Denies dizziness, Denies frequent falls, Denies numbness, Denies tingling and Denies weakness Endo Denies fatigue and Denies palpitations Physical Exam Vital Signs: Last Vital Signs Pulse 97 03/25/24 10:43 BP 96/62 03/25/24 10:43 BMI result Body Mass Index 13.3 GENERAL APPEARANCE: in no acute distress, thin. SKIN: no suspicious lesions, warm and dry. HEART: no murmurs, regular rate and rhythm, S1, S2 normal. LUNGS: clear to auscultation bilaterally. ABDOMEN: normal, bowel sounds present, soft, nontender, nondistended. EXTREMITIES: no clubbing, cyanosis, or edema. PERIPHERAL PULSES: equal. NEUROLOGIC: nonfocal, alert and oriented. PSYCH: mood/affect full range. Office Procedures EKG Details: Sinus rhythm 87 beats per minute, left axis deviation, pulmonary disease pattern. Septal infarct. Lateral T-wave inversions. QTC 462 milliseconds. [id number], Complete Assessment & Plan Assessment & Plan (1) AAA (abdominal aortic aneurysm): Comment: Endovascular aortic aneurysm repair with iliac angioplasty repair by Dr Barber. December 2019 Code(s): I71.4 - Abdominal aortic aneurysm, without rupture Category: Medical (2) HTN (hypertension): Code(s): I10 - Essential (primary) hypertension Category: Medical Qualifiers: Hypertension type: essential hypertension Qualified Code(s): I10 - Essential (primary) hypertension (3) Carotid stenosis: Comment: Ultrasound 06/16/20 Right ICA 50-79% stenosis, Left ICA 50-79%. , Code(s): I65.29 - Occlusion and stenosis of unspecified carotid artery Category: Medical (4) Tobacco abuse: Comment: Seven cigarettes a day January 2023, CT scan August 2023 Code(s): Z72.0 - Tobacco use Category: Medical Plan Very pleasant 79-year-old female who is here for follow-up. She is background history of tobacco use and peripheral vascular disease. She had abdominal aortic aneurysm repair in the past by Dr. Barber. She also has carotid stenosis. She is taking baby aspirin atorvastatin 80 mg daily. She continues to smoke but has cut back on smoking up to 6-7 cigarettes per day. Denying any symptoms on follow-up. Blood pressure control is reasonable. She has pulmonary disease pattern on EKG with septal infarct, I have advised her to do echocardiography but she wants to think about it. She will see us back in a year. If she makes up her mind about echo cardiography then she will call us. Thank you for allowing me to participate in the care of your patient. Please feel free to contact me if you have any questions. Coding Level of Care Code Est Pt Level 4 (93334) Diagnoses AAA (abdominal aortic aneurysm) I71.4 Essential hypertension I10 Hypertension type: essential hypertension Carotid stenosis I65.29 Tobacco abuse Z72.0 CPT Codes EKG - CPT: 88463-[id number], Complete ([id number])
== END 2024-03-25 11:10 | disposition home or self-care (01) ==
PROVIDERS: PCP Internal Medicine; Visit Provider Internal Medicine Cardiovascular Disease
DX: I71.40 Abdominal aortic aneurysm, without rupture, unspecified (principal); I10 Essential (primary) hypertension; I65.29 Occlusion and stenosis of unspecified carotid artery; Z72.0 Tobacco use
CPT/HCPCS: 93010; 99214

== ENCOUNTER → 2024-03-25 10:40 | Outpatient (BNVA) | payer MEDICARE, SELFPAY | PROVIDERS: PCP Internal Medicine; Visit Provider Internal Medicine Cardiovascular Disease | DX: I10 Essential (primary) hypertension (principal); I71.40 Abdominal aortic aneurysm, without rupture, unspecified; I65.29 Occlusion and stenosis of unspecified carotid artery; E78.5 Hyperlipidemia, unspecified; F17.210 Nicotine dependence, cigarettes, uncomplicated | CPT/HCPCS: 93005; 99212 ==

== ENCOUNTER 2024-05-18 06:04 | Outpatient (REF) | payer MEDICARE, SELFPAY ==
[2024-05-18 12:05] LABS: MANUAL DIFF FLAG NO
[2024-05-18 12:07] LABS: Basophils Absolute Auto 0.1 X10*3/uL (0.0-0.2); Basophils Percent Auto 1.1 % (0-2); Eosinophils Absolute Auto 0.4 X10*3/uL (0.0-0.4); Eosinophils Percent Auto 3.8 % (0-4); Hematocrit 40.1 % (37.0-47.0); Hemoglobin 13.1 g/dl (12.0-16.0); Imm Gran Abs Auto 0.03 X10*3/uL (0.00-0.03); Imm Gran Pct Auto 0.3 % (0.0-0.4); Lymphocytes Absolute Auto 2.5 X10*3/uL (1.2-4.9); Mean Corpuscular HGB Conc 32.7 g/dl (31.0-35.0); Mean Corpuscular Hemoglobin 30.6 pg (27.0-33.0); Mean Corpuscular Volume 93.7 fL (80.0-98.0); Mean Platelet Volume 10.8 fL (9.4-12.3); Monocytes Absolute Auto 0.9 X10*3/uL (0.1-1.2); Monocytes Percent Auto 9.6 % (2-11); Neutrophils Absolute Auto 5.4 x10*3/uL (2.0-8.3); Neutrophils Percent Auto 58.2 % (45-73); Platelet Count 257 X10*3/uL (160-400); Red Blood Count 4.28 X10*6/uL (4.20-5.50); Red Cell Distribution Width 13.6 % (11.0-16.0); White Blood Count 9.4 X10*3/uL (4.8-10.8)
[2024-05-18 13:05] LABS: Alanine Aminotransferase 19 U/L (0-31); Albumin Level 4.1 g/dL (3.5-5.0); Alkaline Phosphatase 64 U/L (39-117); Anion Gap 20 (12-20); Aspartate Amino Transferase 26 U/L (5-31); Bilirubin Total 0.5 mg/dL (0.0-1.0); Blood Urea Nitrogen 20 mg/dL (9-16); Carbon Dioxide 26 mmol/L (22-29); Chloride 102 mmol/L (96-108); Cholesterol 146 mg/dL (<200); Estimated Glomerular Filt Rate 43; Free T4 (Free Thyroxine) 1.09 ng/dL (0.71-1.85); Glucose Random 97 mg/dL (60-115); HDL Cholesterol 47 mg/dL (>40); LDL Cholesterol Calculated 81 mg/dL (<100); Potassium 4.6 mmol/L (3.3-5.1); Sodium 143 mmol/L (135-145); Thyroid Stimulating Hormone 4.49 uIU/mL (0.32-4.0); Total Protein 7.5 g/dL (6.5-8.0); Triglycerides 94 mg/dL (<150); Vitamin D 25-OH Total 62.6 ng/mL (>30)
[2024-05-18 13:14] LABS: Folate 15.1 ng/mL (> or = 4.0); Vitamin B12 > 2000 pg/mL (200-900)
== END 2024-05-18 06:05 | disposition home or self-care (01) ==
LOC: HO.HMGCLDS 06:04
PROVIDERS: PCP Internal Medicine; Visit Provider Internal Medicine
DX: E78.00 Pure hypercholesterolemia, unspecified (principal)
CPT/HCPCS: 36415; 80053; 80061; 82306; 82607; 82746; 84439; 84443; 85025

== ENCOUNTER 2024-06-05 11:32 | Outpatient (AMB) | payer MEDICARE, SELFPAY ==
[2024-06-05 11:36] VITALS: BP 100/52; PULSE 57; O2SAT 93; BMI 12.5
--- NOTE | 2024-06-05 11:36 | A.OFFPC_ITS ---
Vital Signs 06/05/24 11:36 Height 5 ft 3 in Weight 70 lb 8 oz BMI 12.5 BP 100/52 L Blood Pressure Location Lt brachial Position Sitting Pulse 57 Pulse Source Pulse Oximeter Pulse Oximetry (%) 93 Oxygen Delivery Method Room Air Intake Visit Reasons: 6MoF/U Allergies No Known Allergies [No Known Allergies*] Allergy (Verified 06/05/24 11:36) Tobacco use date assessed: 06/05/24 Fall risk assessment: No Falls in past year Last assessed Fall Risk: 06/05/24 Dental Screening Dental Screen Date: 06/05/24 Did you have a dental visit in the last 12 months?: No Did you have a dental problem in the last 6 months where you did not have access to dental care?: No Was dental information given to patient?: No HPI 6MoF/U HPI Details 79-year-old female smoker with COPD hype rcholesterolemia hypertension and osteoporosis coming in for follow-up. Last seen in 11/13/2023. Patient has lung s yearly and the last 1 was 09/13/2023. Patient follows up with Cardiology seen March 2024 history of abdominal aortic aneurysm repair(12/2019 )with bilateral moderate carotid artery disease. Has been advised echocardiogram but wants to think about it. February had right shoulder pain x-ray done old healed right humeral neck fracture. covid infection 2 weeks ago lost apetitte but is better now. [facility] Medical History (Updated 06/05/24 @ 12:10 by Camilo Quiñones MD) Osteoporosis Colonoscopy refused Mammogram declined Personal history of nicotine dependence Underweight Renal calculi Fracture, humerus Hypercholesterolemia HTN (hypertension) Carotid stenosis Osteoporosis (~2013) AAA (abdominal aortic aneurysm) Surgical History H/O tubal ligation History of cataract surgery History of AAA (abdominal aortic aneurysm) repair (~2019) Family History Father Medical history unknown Mother Cancer Brother No problems noted. Brother No problems noted. Brother No problems noted. Sister No problems noted. Sister No problems noted. Sister No problems noted. Daughter No problems noted. Daughter No problems noted. Daughter No problems noted. Social History Housing: Apartment Alcohol intake: current Alcohol intake frequency: holidays/special occasions only Patient Tobacco Use Status: Current everyday Tobacco user Tobacco use type: Cigarette Cigarette Packs Per Day: 0.5 Cigarettes Per Day: 6 Years Smoked: 50 +/- e-Cigarette/Vaping Use: Never Used Second Hand Smoke Exposure: Yes service: No Current occupational status: retired Cognitive needs: No Hearing needs: No Vision needs: Yes Questionnaire PHQ-9 Over the last 2 weeks, how often have you been bothered by any of the following problems? 1. Little interest or pleasure in doing things: not at all 2. Feeling down, depressed, or hopeless: not at all 3. Trouble falling or staying asleep, or sleeping too much: not at all 4. Feeling tired or having little energy: not at all 5. Poor appetite or overeating: not at all 6. Feeling bad about yourself - or that you are a failure or have let yourself or your family down: not at all 7. Trouble concentrating on things, such as reading the newspaper or watching television: not at all 8. Moving or speaking so slowly that other people could have noticed. Or the opposite - being so fidgety or restless that you have been moving around a lot more than usual: not at all 9. Thoughts that you would be better off or of hurting yourself in some way: not at all Total score: 0 Depression Screening Interpretation: Negative Depression Screening Done: Yes 36413 - PHQ-9 Billing: Yes Source: Developed by Drs. Ramesh Youngblood, Melyssa Bergeron, Oliver Hendricks and colleagues, with an educational saw from [employer]. Thrive Questionnaire Date Thrive assessed: 06/05/24 I am a: Patient What is your living situation today?: I have a steady place to live Within the past 12 months, did the food you bought not last and you didn't have the money to get more?: Never true Within the past 12 months, did you worry whether your food would run out before you got money to buy more?: Never true Do you have trouble paying for medicines?: No Do you have trouble getting transportation to medical appointments?: No Do you have trouble paying your heating and electricity bill?: No Do you have trouble taking care of your child, family member or friend?: No Do you have trouble with day-to-day activities such as bathing, preparing meals, shopping, managing finances, etc.?: No Are you currently unemployed and looking for a job?: No Are you interested in more education?: No Currently or been in a relationship where the following occur: No concerns reported THRIVE Score: 0 AUDIT C Alcohol Use Questionnaire (AUDIT-C) 1. How often do you have a drink containing alcohol?: Monthly or less 2. How many drinks containing alcohol do you have on a typical day when you are drinking?: 1 or 2 3. How often do you have six or more drinks on one occasion?: Never Total Score: 1 MESSI-7 AMB Questionnaire MESSI-7 Date MESSI - 7 assessed: 06/05/24 Feeling nervous, anxious, or on edge: 0 = Not at all Not being able to stop or control worryin = Not at all Worrying too much about different things: 0 = Not at all Trouble relaxin = Not at all Being so restless that it is hard to sit still: 0 = Not at all Becoming easily annoyed or irritable: 0 = Not at all Feeling afraid as if something awful might happen: 0 = Not at all Total MESSI-7 score (0-4 normal; 5-9 mild; 10-14 moderate; 15-21 severe): 0 Source: Developed by Drs. Ramesh Youngblood, Melyssa Bergeron, Oliver Hendricks and colleagues, with an educational saw from [employer]. Physical exam (Primary Care) Vital Signs: Last Vital Signs Pulse 57 06/05/24 11:36 BP 100/52 L 06/05/24 11:36 Pulse Ox 93 06/05/24 11:36 Oxygen Delivery Method Room Air 06/05/24 11:36 BMI result Body Mass Index 12.5 Tobacco/Smoking Status: Tobacco use Status Tobacco use date assessed 06/05/24 06/05/24 11:42 Patient Tobacco Use Status Current everyday Tobacco 06/05/24 11:42 Tobacco use type Cigarette 06/05/24 11:42 e-Cigarette/Vaping Use Never Used 06/05/24 11:42 PHQ-9: PHQ-9 Score PHQ-9: Total score 0 06/05/24 11:42 Depression Screening Interpretation: Negative Thrive Assessment: Date of Thrive Assessment Date Thrive assessed 06/05/24 06/05/24 11:42 Currently or been in a relationship where the following occur: No concerns reported Const General: alert; No acute distress Eyes Conjunctivae: conjunctivae normal Resp Auscultation: clear to auscultation bilaterally Cardio Rate: regular rate Rhythm: regular rhythm GI Inspection: Yes normal to inspection Extrem General: Yes normal to inspection and No edema Assessment and Plan Assessment & Plan (1) COPD (chronic obstructive pulmonary disease): Code(s): J44.9 - Chronic obstructive pulmonary disease, unspecified Plan: Patient has not been requiring any inhaler. (2) Tobacco abuse: Comment: Seven cigarettes a day January 2023, CT scan August 2023, 6 smokes 05/2024 Code(s): Z72.0 - Tobacco use Plan: Continues to smoke but cutting down. 6 cigarette a day now (3) HTN (hypertension): Code(s): I10 - Essential (primary) hypertension Qualifiers: Hypertension type: essential hypertension Qualified Code(s): I10 - Essential (primary) hypertension Plan: Continue with blood pressure medication. Decrease salt intake and exercise presently on amlodipine 10 mg once a day. decrease amlodipine to 5 mg QD (4) Hypercholesterolemia: Code(s): E78.00 - Pure hypercholesterolemia, unspecified Plan: Avoid fried foods, chicken skin, eggs, butter margarine, pastries and meat. Be it pork or beef they have a lot of cholesterol atorvastatin 80 mg once a day LDL goal of less than 100 and triglyceride of less than 150 (5) Carotid stenosis: Comment: Ultrasound 06/16/20 Right ICA 50-79% stenosis, Left ICA 50-79%. , Code(s): I65.29 - Occlusion and stenosis of unspecified carotid artery Plan: On aspirin continue to monitor (6) AAA (abdominal aortic aneurysm): Comment: Endovascular aortic aneurysm repair with iliac angioplasty repair by Dr Barber. December 2019 Code(s): I71.4 - Abdominal aortic aneurysm, without rupture Plan: Patient follows up with Cardiology stable has been advised echocardiogram but patient was taking about it. Medications: Changed From amlodipine 10 mg PO DAILY 90 tabs 1RF To amlodipine 5 mg PO DAILY 90 tabs 1RF Coding Level of Care Code Est Pt Level 4 (88584) Complex EM visit Add On G2211 Diagnoses COPD (chronic obstructive pulmonary disease) J44.9 Tobacco abuse Z72.0 Essential hypertension I10 Hypertension type: essential hypertension Hypercholesterolemia E78.00 Carotid stenosis I65.29 AAA (abdominal aortic aneurysm) I71.4
== END 2024-06-05 12:13 | disposition home or self-care (01) ==
PROVIDERS: PCP Internal Medicine; Visit Provider Internal Medicine
DX: J44.9 Chronic obstructive pulmonary disease, unspecified (principal); I71.40 Abdominal aortic aneurysm, without rupture, unspecified; Z72.0 Tobacco use; I10 Essential (primary) hypertension; E78.00 Pure hypercholesterolemia, unspecified; I65.29 Occlusion and stenosis of unspecified carotid artery
CPT/HCPCS: 99214; G2211

== ENCOUNTER → 2024-06-18 14:04 | Outpatient (AMB) | payer MEDICARE, SELFPAY ==
--- NOTE | 2024-06-18 14:08 | MHC.OFFWIV ---
Intake Vital Signs 06/18/24 14:40 Height 5 ft 3 in Weight 71 lb BMI 12.6 BP 110/76 Blood Pressure Location Rt brachial Pulse 96 Pulse Source Pulse Oximeter Temp 97.6 F Temp Source Oral Pulse Oximetry (%) 95 Oxygen Delivery Method Room Air Intake Visit Reasons: est/pain in left hip Intake Note: pt is here c/o LT hip pain. Started a month ago Patient Tobacco Use Status: Current everyday Tobacco user Allergies No Known Allergies [No Known Allergies*] Allergy (Verified 06/18/24 14:08) Do you need a note to return to daycare/school/sports/work: No HPI HPI Comments History of Present Illness Details Patient is a 79-year-old female complaining of left-sided flank pain x1 month. She denies any falls or trauma to the area. She states she thinks it is her hip but the area she is pointing to her actually her ribs. She said it is worse with deep it deep inspiration. She tried to take an Aleve without much improvement and she did have a muscle relaxer left over that she tried to take without much improvement in her pain as well PFSH Medical History (Updated 06/18/24 @ 15:15 by Thelma Pelayo PA-C) Osteoporosis Colonoscopy refused Mammogram declined Personal history of nicotine dependence Underweight Renal calculi Fracture, humerus Hypercholesterolemia HTN (hypertension) Carotid stenosis Osteoporosis (~2013) AAA (abdominal aortic aneurysm) Surgical History H/O tubal ligation History of cataract surgery History of AAA (abdominal aortic aneurysm) repair (~2019) Family History Father Medical history unknown Mother Cancer Brother No problems noted. Brother No problems noted. Brother No problems noted. Sister No problems noted. Sister No problems noted. Sister No problems noted. Daughter No problems noted. Daughter No problems noted. Daughter No problems noted. Social History Housing: Apartment Alcohol intake: current Alcohol intake frequency: holidays/special occasions only Patient Tobacco Use Status: Current everyday Tobacco user Tobacco use type: Cigarette Cigarette Packs Per Day: 0.5 Cigarettes Per Day: 6 Years Smoked: 50 +/- e-Cigarette/Vaping Use: Never Used Second Hand Smoke Exposure: Yes service: No Current occupational status: retired Cognitive needs: No Hearing needs: No Vision needs: Yes Review of Systems Const All systems reviewed & are unremarkable except as noted in HPI and below Physical Exam Vital Signs: Last Vital Signs Temp 97.6 F 06/18/24 14:40 Pulse 96 06/18/24 14:40 BP 110/76 06/18/24 14:40 Pulse Ox 95 06/18/24 14:40 Oxygen Delivery Method Room Air 06/18/24 14:40 BMI result Body Mass Index 12.6 Const General: cooperative, comfortable and no acute distress Nutritional Appearance: underweight Orientation/consciousness: patient oriented x3 Limitations: no limitations HEENT Head: Yes normal to inspection Eyes General: appearance normal, both eyes and all related structures Neck Neck: Yes normal visual inspection and Yes full ROM Chest Chest palpation & inspection: normal inspection of the chest and localized rib tenderness with anteroposterior compression left anterior-axillary line involving the 7th rib and involving the 8th rib Resp Effort & Inspection: normal respiratory effort and able to speak in complete sentences GI Inspection: Yes normal to inspection Palpation (GI): Soft to palpation and nontender Skin General skin exam: no rashes or lesions noted Neuro General: patient oriented x3 Extrem General: Yes normal to inspection Assessment & Plan Assessment & Plan (1) Intercostal muscle strain: Code(s): S29.011A - Strain of muscle and tendon of front wall of thorax, initial encounter Qualifiers: Encounter type: initial encounter Qualified Code(s): S29.011A - Strain of muscle and tendon of front wall of thorax, initial encounter Plan: VSS, patient will appearing. Recommended patient use Salonpas lidocaine patches as well as Aleve alternating with Tylenol if needed, recommended she follow up with her PCP if no improvement in the next couple of weeks Plan See above Coding Level of Care Code Est Pt Level 3 (71215) Diagnoses Intercostal muscle strain, initial encounter S29.011A Encounter type: initial encounter
[2024-06-18 14:40] VITALS: BP 110/76; PULSE 96; TEMP 36.4; O2SAT 95; BMI 12.6
== END ==
PROVIDERS: PCP Internal Medicine; Visit Provider Physician Assistant
DX: S29.011A Strain of muscle and tendon of front wall of thorax, initial encounter (principal)
CPT/HCPCS: 99213

== ENCOUNTER 2024-09-15 09:08 | Outpatient (AMB) | payer MEDICARE, SELFPAY ==
--- NOTE | 2024-09-15 09:12 | MHC.PC.OV ---
Vital Signs 09/15/24 09:13 Height 5 ft 3 in Weight 73 lb 2 oz BMI 13.0 BP 130/70 Blood Pressure Location Lt brachial Position Sitting Pulse 101 H Pulse Source Pulse Oximeter Pulse Oximetry (%) 96 Oxygen Delivery Method Room Air Intake Visit Reasons: 4 mo f/u HTN Intake Note: Patient is here to follow up on HTN. Pt decline flu shot today. Event Sales Representative Required: No Scalder: Not Required per policy Accompanied by: Self / Same As Patient Allergies No Known Allergies [No Known Allergies*] Allergy (Verified 09/15/24 09:13) Tobacco use date assessed: 09/15/24 Fall risk assessment: No Falls in past year Last assessed Fall Risk: 09/15/24 Dental Screening Dental Screen Date: 06/05/24 HPI 4 mo f/u HTN HPI Details 79-year-old female smoker with COPD hypertension hypercholesterolemia history of carotid stenosis and abdominal aortic aneurysm status post repair in 01/14/2020 last seen in 06/13/2024. Patient has osteoporosis and last bone density was done in 12/14/2022. Review of the notes Urgent Center June 18 for hip pain/left-sided flank pain diagnosis of thoracic muscle pain and was treated conservatively. Patient was last seen by Cardiology in March 2024 with the abdominal aortic aneurysm status post repair and bilateral moderate carotid disease denies any symptoms [facility] Medical History (Updated 09/15/24 @ 09:51 by Camilo Quiñones MD) Osteoporosis Colonoscopy refused Mammogram declined Personal history of nicotine dependence Underweight Renal calculi Fracture, humerus Hypercholesterolemia HTN (hypertension) Carotid stenosis Osteoporosis (~2013) AAA (abdominal aortic aneurysm) Surgical History H/O tubal ligation History of cataract surgery History of AAA (abdominal aortic aneurysm) repair (~2019) Family History Father Medical history unknown Mother Cancer Brother No problems noted. Brother No problems noted. Brother No problems noted. Sister No problems noted. Sister No problems noted. Sister No problems noted. Daughter No problems noted. Daughter No problems noted. Daughter No problems noted. Social History (Updated 09/15/24 @ 09:16 by JOCELIN Castillo) Housing: Apartment Alcohol intake: current Alcohol intake frequency: holidays/special occasions only Patient Tobacco Use Status: Current everyday Tobacco user Tobacco use type: Cigarette Cigarette Packs Per Day: 0.5 Cigarettes Per Day: 10 Years Smoked: 50 +/- e-Cigarette/Vaping Use: Never Used Second Hand Smoke Exposure: Yes service: No Current occupational status: retired Cognitive needs: No Hearing needs: No Vision needs: Yes Questionnaire Thrive Questionnaire Date Thrive assessed: 06/05/24 MESSI-7 AMB Questionnaire MESSI-7 Date MESSI - 7 assessed: 06/05/24 Source: Developed by Drs. Ramesh Youngblood, Melyssa Bergeron, Oliver Hendricks and colleagues, with an educational saw from [employer]. Physical exam (Primary Care) Vital Signs: Last Vital Signs Pulse 101 H 09/15/24 09:13 BP 130/70 09/15/24 09:13 Pulse Ox 96 09/15/24 09:13 Oxygen Delivery Method Room Air 09/15/24 09:13 BMI result Body Mass Index 13.0 Tobacco/Smoking Status: Tobacco use Status Tobacco use date assessed 09/15/24 09/15/24 09:18 Patient Tobacco Use Status Current everyday Tobacco 09/15/24 09:18 Tobacco use type Cigarette 09/15/24 09:18 e-Cigarette/Vaping Use Never Used 09/15/24 09:18 Thrive Assessment: Date of Thrive Assessment Date Thrive assessed 06/05/24 09/15/24 09:18 Const General: alert; No acute distress Eyes Conjunctivae: conjunctivae normal Resp Auscultation: clear to auscultation bilaterally Cardio Rate: regular rate Rhythm: regular rhythm GI Inspection: Yes normal to inspection Extrem General: Yes normal to inspection and No edema Coding Level of Care Code Est Pt Level 4 (91224) Diagnoses COPD (chronic obstructive pulmonary disease) J44.9 Tobacco abuse Z72.0 Personal history of nicotine dependence Z87.891 Essential hypertension I10 Hypertension type: essential hypertension Hypercholesterolemia E78.00 Bilateral carotid artery stenosis I65.23 Laterality: bilateral Abdominal aortic aneurysm (AAA) without rupture, unspecified part I71.40 Abdominal aorta location: unspecified Presence of rupture: without rupture Assessment & Plan Assessment & Plan (1) COPD (chronic obstructive pulmonary disease): Code(s): J44.9 - Chronic obstructive pulmonary disease, unspecified Category: Medical Plan: Patient continuously advised to stop smoking. Stable with no inhalers being use. (2) Tobacco abuse: Comment: Seven cigarettes a day January 2023, CT scan August 2023, 6 smokes 05/2024 Code(s): Z72.0 - Tobacco use Category: Medical Plan: Patient is strongly advised to stop smoking (3) Personal history of nicotine dependence: Comment: (current smoker, onset 16, x 60yrs max 1ppd, now 7cig/day, 50+PYH) Code(s): Z87.891 - Personal history of nicotine dependence Category: Medical Plan: Discussion with the patient regarding lung cancer screening program. (4) HTN (hypertension): Code(s): I10 - Essential (primary) hypertension Category: Medical Qualifiers: Hypertension type: essential hypertension Qualified Code(s): I10 - Essential (primary) hypertension Plan: Continue with blood pressure medication. Decrease salt intake and exercise presently on amlodipine 5 mg once a day (5) Hypercholesterolemia: Code(s): E78.00 - Pure hypercholesterolemia, unspecified Category: Medical Plan: Avoid fried foods, chicken skin, eggs, butter margarine, pastries and meat. Be it pork or beef they have a lot of cholesterol LDL goal of less than 70 and triglyceride of less than 150 on Zetia 10 mg once a day and atorvastatin 80 (6) Carotid stenosis: Comment: Ultrasound 06/16/20 Right ICA 50-79% stenosis, Left ICA 50-79%. , Code(s): I65.29 - Occlusion and stenosis of unspecified carotid artery Category: Medical Qualifiers: Laterality: bilateral Qualified Code(s): I65.23 - Occlusion and stenosis of bilateral carotid arteries Plan: Control the cholesterol, weight, blood pressure on aspirin (7) AAA (abdominal aortic aneurysm): Comment: Endovascular aortic aneurysm repair with iliac angioplasty repair by Dr Barber. December 2019 Code(s): I71.4 - Abdominal aortic aneurysm, without rupture Category: Medical Qualifiers: Abdominal aorta location: unspecified Presence of rupture: without rupture Qualified Code(s): I71.40 - Abdominal aortic aneurysm, without rupture, unspecified Plan: Stable Orders: Orders Lipid Panel Today E78.00 - Pure hypercholesterolemia, unspecified Thyroid Stimulating Hormone Today E78.00 - Pure hypercholesterolemia, unspecified Complete Blood Count Auto Diff Today E78.00 - Pure hypercholesterolemia, unspecified Comprehensive Met. Panel Today E78.00 - Pure hypercholesterolemia, unspecified Free T4 (Free Thyroxine) Today E78.00 - Pure hypercholesterolemia, unspecified Vitamin B12 and Folate Today E78.00 - Pure hypercholesterolemia, unspecified Vitamin D 25-OH Total Today E78.00 - Pure hypercholesterolemia, unspecified
[2024-09-15 09:13] VITALS: BP 130/70; PULSE 101; O2SAT 96; BMI 13.0
== END 2024-09-15 09:54 | disposition home or self-care (01) ==
PROVIDERS: PCP Internal Medicine; Visit Provider Internal Medicine
DX: J44.9 Chronic obstructive pulmonary disease, unspecified (principal); I71.40 Abdominal aortic aneurysm, without rupture, unspecified; Z87.891 Personal history of nicotine dependence; I10 Essential (primary) hypertension; E78.00 Pure hypercholesterolemia, unspecified; I65.23 Occlusion and stenosis of bilateral carotid arteries

== ENCOUNTER → 2024-09-15 09:08 | Outpatient (BNVA) | payer MEDICARE, SELFPAY | PROVIDERS: PCP Internal Medicine; Visit Provider Internal Medicine | DX: J44.9 Chronic obstructive pulmonary disease, unspecified (principal); I10 Essential (primary) hypertension; E78.00 Pure hypercholesterolemia, unspecified; I65.23 Occlusion and stenosis of bilateral carotid arteries; I71.40 Abdominal aortic aneurysm, without rupture, unspecified; F17.210 Nicotine dependence, cigarettes, uncomplicated; Z79.82 Long term (current) use of aspirin; Z79.899 Other long term (current) drug therapy | CPT/HCPCS: 99212 ==

== ENCOUNTER 2025-03-16 06:06 | Outpatient (REF) | payer MEDICARE, SELFPAY ==
[2025-03-16 10:10] LABS: MANUAL DIFF FLAG NO
[2025-03-16 10:24] LABS: Basophils Absolute Auto 0.1 X10*3/uL (0.0-0.2); Basophils Percent Auto 0.9 % (0-2); Eosinophils Absolute Auto 0.4 X10*3/uL (0.0-0.4); Eosinophils Percent Auto 3.2 % (0-4); Hematocrit 39.3 % (37.0-47.0); Hemoglobin 12.8 g/dl (12.0-16.0); Imm Gran Abs Auto 0.03 X10*3/uL (0.00-0.03); Imm Gran Pct Auto 0.3 % (0.0-0.4); Lymphocytes Absolute Auto 2.7 X10*3/uL (1.2-4.9); Lymphocytes Percent Auto 23.7 % (20-40); Mean Corpuscular HGB Conc 32.6 g/dl (31.0-35.0); Mean Corpuscular Hemoglobin 30.4 pg (27.0-33.0); Mean Corpuscular Volume 93.3 fL (80.0-98.0); Mean Platelet Volume 9.9 fL (9.4-12.3); Monocytes Absolute Auto 1.1 X10*3/uL (0.1-1.2); Monocytes Percent Auto 9.9 % (2-11); Platelet Count 336 X10*3/uL (160-400); Red Blood Count 4.21 X10*6/uL (4.20-5.50); White Blood Count 11.3 X10*3/uL (4.8-10.8)
[2025-03-16 10:48] LABS: Alanine Aminotransferase 12 U/L (0-31); Alkaline Phosphatase 68 U/L (39-117); Anion Gap 14 (12-20); Aspartate Amino Transferase 34 U/L (5-31); Bilirubin Total 0.5 mg/dL (0.0-1.0); Blood Urea Nitrogen 25 mg/dL (9-16); Calcium 9.8 mg/dL (8.4-10.2); Carbon Dioxide 27 mmol/L (22-29); Chloride 104 mmol/L (96-108); Cholesterol 142 mg/dL (<200); Estimated Glomerular Filt Rate 48; Glucose Random 103 mg/dL (60-115); HDL Cholesterol 45 mg/dL (>40); LDL Cholesterol Calculated 79 mg/dL (<100); Potassium 4.5 mmol/L (3.3-5.1); Sodium 140 mmol/L (135-145); Total Protein 7.4 g/dL (6.5-8.0); Triglycerides 94 mg/dL (<150)
[2025-03-16 10:55] LABS: Free T4 (Free Thyroxine) 1.22 ng/dL (0.71-1.85); Thyroid Stimulating Hormone 4.58 uIU/mL (0.32-4.0); Vitamin D 25-OH Total 53.4 ng/mL (>30)
[2025-03-16 11:14] LABS: Folate 15.1 ng/mL (> or = 4.0); Vitamin B12 > 2000 pg/mL (200-900)
== END 2025-03-16 06:07 | disposition home or self-care (01) ==
LOC: HO.HMGCLDS 06:06
PROVIDERS: PCP Internal Medicine; Visit Provider Internal Medicine
DX: E78.00 Pure hypercholesterolemia, unspecified (principal)
CPT/HCPCS: 36415; 80053; 80061; 82306; 82607; 82746; 84439; 84443; 85025

== ENCOUNTER 2025-03-18 09:16 | Outpatient (AMB) | payer MEDICARE, SELFPAY ==
[2025-03-18 09:41] VITALS: BP 132/84; PULSE 95; TEMP 36.2; O2SAT 95; BMI 13.0
--- NOTE | 2025-03-18 09:41 | A.OFFPC_ITS ---
Vital Signs 03/18/25 09:41 Height 5 ft 3 in Weight 73 lb 6 oz BMI 13.0 BP 132/84 Blood Pressure Location Lt brachial Position Sitting Pulse 95 Pulse Source Pulse Oximeter Temp 97.1 F Temp Source Temporal Artery Scan Pulse Oximetry (%) 95 Oxygen Delivery Method Room Air Intake Visit Reasons: smoker , COPD, HTN Controlled Atmospheric Furnace Brazer Required: No Accompanied by: Self / Same As Patient Allergies No Known Allergies [No Known Allergies*] Allergy (Verified 03/18/25 09:47) Tobacco use date assessed: 03/18/25 Fall risk assessment: No Falls in past year Last assessed Fall Risk: 03/18/25 Dental Screening Dental Screen Date: 03/18/25 Did you have a dental visit in the last 12 months?: No Did you have a dental problem in the last 6 months where you did not have access to dental care?: No Was dental information given to patient?: No [facility] Medical History (Updated 03/18/25 @ 09:55 by Camilo Quiñones MD) Osteoporosis Colonoscopy refused Mammogram declined Personal history of nicotine dependence Underweight Renal calculi Fracture, humerus Hypercholesterolemia HTN (hypertension) Carotid stenosis Osteoporosis (~2013) AAA (abdominal aortic aneurysm) Surgical History H/O tubal ligation History of cataract surgery History of AAA (abdominal aortic aneurysm) repair (~2019) Family History Father Medical history unknown Mother Cancer Brother No problems noted. Brother No problems noted. Brother No problems noted. Sister No problems noted. Sister No problems noted. Sister No problems noted. Daughter No problems noted. Daughter No problems noted. Daughter No problems noted. Social History (Updated 09/15/24 @ 09:16 by JOCELIN Castillo) Housing: Apartment Alcohol intake: current Alcohol intake frequency: holidays/special occasions only Patient Tobacco Use Status: Current everyday Tobacco user Tobacco use type: Cigarette Cigarette Packs Per Day: 0.5 Cigarettes Per Day: 10 Years Smoked: 50 +/- e-Cigarette/Vaping Use: Never Used Second Hand Smoke Exposure: Yes service: No Current occupational status: retired Cognitive needs: No Hearing needs: No Vision needs: Yes Questionnaire PHQ-9 Over the last 2 weeks, how often have you been bothered by any of the following problems? 1. Little interest or pleasure in doing things: not at all 2. Feeling down, depressed, or hopeless: not at all 3. Trouble falling or staying asleep, or sleeping too much: not at all 4. Feeling tired or having little energy: not at all 5. Poor appetite or overeating: not at all 6. Feeling bad about yourself - or that you are a failure or have let yourself or your family down: not at all 7. Trouble concentrating on things, such as reading the newspaper or watching television: not at all 8. Moving or speaking so slowly that other people could have noticed. Or the opposite - being so fidgety or restless that you have been moving around a lot more than usual: not at all 9. Thoughts that you would be better off or of hurting yourself in some way: not at all Total score: 0 Depression Screening Interpretation: Negative Depression Screening Done: Yes 29441 - PHQ-9 Billing: Yes Source: Developed by Drs. Ramesh Youngblood, Melyssa Bergeron, Oliver Hendricks and colleagues, with an educational saw from [employer] Thrive Questionnaire Date Thrive assessed: 03/18/25 I am a: Patient What is your living situation today?: I have a steady place to live Within the past 12 months, did the food you bought not last and you didn't have the money to get more?: Never true Within the past 12 months, did you worry whether your food would run out before you got money to buy more?: Never true Do you have trouble paying for medicines?: No Do you have trouble getting transportation to medical appointments?: No Do you have trouble paying your heating and electricity bill?: No Do you have trouble taking care of your child, family member or friend?: No Do you have trouble with day-to-day activities such as bathing, preparing meals, shopping, managing finances, etc.?: No Are you currently unemployed and looking for a job?: No Are you interested in more education?: No Please select the resources that you would like help with: None Currently or been in a relationship where the following occur: No concerns reported THRIVE Score: 0 AUDIT C Alcohol Use Questionnaire (AUDIT-C) 1. How often do you have a drink containing alcohol?: Never 3. How often do you have six or more drinks on one occasion?: Never Total Score: 0 MESSI-7 AMB Questionnaire MESSI-7 Date MESSI - 7 assessed: 03/18/25 Feeling nervous, anxious, or on edge: 0 = Not at all Not being able to stop or control worryin = Not at all Worrying too much about different things: 0 = Not at all Trouble relaxin = Not at all Being so restless that it is hard to sit still: 0 = Not at all Becoming easily annoyed or irritable: 0 = Not at all Feeling afraid as if something awful might happen: 0 = Not at all Total MESSI-7 score (0-4 normal; 5-9 mild; 10-14 moderate; 15-21 severe): 0 Source: Developed by Drs. Ramesh Youngblood, Melyssa Bergeron, Oliver Hendricks and colleagues, with an educational saw from [employer]. MESSI-7 Assessment Billing MESSI-7 Assessment Tool: MESSI-7 Assessment 48625 Physical exam (Primary Care) Vital Signs: Last Vital Signs Temp 97.1 F 03/18/25 09:41 Pulse 95 03/18/25 09:41 BP 132/84 03/18/25 09:41 Pulse Ox 95 03/18/25 09:41 Oxygen Delivery Method Room Air 03/18/25 09:41 BMI result Body Mass Index 13.0 Tobacco/Smoking Status: Tobacco use Status Tobacco use date assessed 03/18/25 03/18/25 09:47 Patient Tobacco Use Status Current everyday Tobacco 03/18/25 09:41 Tobacco use type Cigarette 03/18/25 09:41 e-Cigarette/Vaping Use Never Used 03/18/25 09:41 PHQ-9: PHQ-9 Score PHQ-9: Total score 0 03/18/25 09:47 Depression Screening Interpretation: Negative Thrive Assessment: Date of Thrive Assessment Date Thrive assessed 03/18/25 03/18/25 09:47 Currently or been in a relationship where the following occur: No concerns reported Const General: alert; No acute distress Eyes Conjunctivae: conjunctivae normal Resp Auscultation: clear to auscultation bilaterally Cardio Rate: regular rate Rhythm: regular rhythm GI Inspection: Yes normal to inspection Extrem General: Yes normal to inspection and No edema Coding Level of Care Code Est Pt Level 4 (18813) Diagnoses Tobacco abuse Z72.0 COPD (chronic obstructive pulmonary disease) J44.9 Underweight R63.6 Essential hypertension I10 Hypertension type: essential hypertension Hypercholesterolemia E78.00 Additional Codes MESSI-7 Assessment Billing - MESSI-7 Assessment Tool: MESSI-7 Assessment 22596 ([id number]) PHQ-9 - 73926 - PHQ-9 Billing: Yes ([id number]) Assessment & Plan Assessment & Plan (1) Tobacco abuse: Comment: Seven cigarettes a day January 2023, CT scan August 2023, 6 smokes 05/2024. 7-10 (02/2025) Code(s): Z72.0 - Tobacco use Category: Medical Plan: Strongly advised to stop smoking! DECLINED Lung cancer screening (2) COPD (chronic obstructive pulmonary disease): Code(s): J44.9 - Chronic obstructive pulmonary disease, unspecified Category: Medical Plan: Not requiring any inhaler continues to smoke. (3) Underweight: Code(s): R63.6 - Underweight Category: Medical Plan: Discussed about diet (4) HTN (hypertension): Code(s): I10 - Essential (primary) hypertension Category: Medical Qualifiers: Hypertension type: essential hypertension Qualified Code(s): I10 - Essential (primary) hypertension Plan: Continue with blood pressure medication. Decrease salt intake and exercise on amlodipine 5 mg once a day (5) Hypercholesterolemia: Code(s): E78.00 - Pure hypercholesterolemia, unspecified Category: Medical Plan: Avoid fried foods, chicken skin, eggs, butter margarine, pastries and meat. Be it pork or beef they have a lot of cholesterol continue to be on Zetia and atorvastatin 80. Blood work February 2025 Plan History of Present Illness The patient is a 80-year-old female presenting with follow-up for Chronic Obstructive Pulmonary Disease (COPD) management. She has a longstanding history of tobacco use, with recent reports of smoking seven to ten cigarettes daily. Despite previous advisories and her last visit in May 2024, she has not initiated inhaler therapy and evidences an increase in smoking habits. Her last reported blood work from February 2022 showed a normal blood count with a mildly elevated white blood cell count. Electrolyte levels and renal function were within normal limits, and her blood glucose was slightly elevated. Her TSH was mildly elevated but were deemed non-significant at this time, and her cholesterol levels were within desired limits under ongoing treatment. The patient experienced a COVID-19 infection approximately six months ago, leading to a persistent loss of smell despite otherwise feeling well. Her appetite remains unchanged, with no gastrointestinal or urogenital complaints of note, although she acknowledges infrequent water intake. Her vitamin B12 levels were high, prompting a reduction in supplement intake to once a week. Health Maintenance - Advised smoking cessation due to COPD and overall health risks. - Discussion on diet and exercise for general well-being. - Blood glucose and cholesterol levels monitored, with continuation of Zetia and atorvastatin. - Reduction of vitamin B12 intake after evaluating high serum levels. - Encouraged increased water intake for better hydration. - Screening for thyroid function to continue monitoring elevated TSH levels. Social History - Tobacco Abuse: The patient admits to smoking seven to ten cigarettes daily. - Nutrition: Inadequate water intake reported, suggests infrequent hydration. - Supplements: Initially taking vitamin B12 every other day, now adjusted to once weekly due to high levels. Review of Systems - General: Reports good appetite and regular bowel movements. - Endocrine: Denies any thyroid symptomatology aside from slightly elevated TSH. - Respiratory: Reports no use of inhaler; continues with steady smoking habits. - Gastrointestinal: Denies changes in bowel movements or presence of blood in stools. - Genitourinary: No complaints of nocturia; consistent urination frequency during the night. - Neurologic: Reports loss of smell following COVID-19 infection. - Nutrition: Reports taking vitamin B12 supplements irregularly, advised adjustment due to high levels. Physical Exam Results - Labs: Normal blood count, moderate elevation in white blood cell count; normal electrolytes and renal function. - Tests and Diagnostics: LDL cholesterol at 79 mg/dL; mild elevation in TSH levels. Plan For addressing COPD, I emphasized the crucial need for smoking cessation due to its direct debilitating impact. Despite ongoing advice to quit and positive reinforcement, smoking persists. I opted to continue with current prescriptions, including antihypertensive and lipid-lowering therapy, and scheduled future bloodwork to evaluate treatment outcomes. Changes to her vitamin supplementation are necessary due to current high levels, reducing intake to once weekly. Increased water intake was recommended to improve hydration and overall health. Monitoring her thyroid function will be ongoing without present need for intervention. Discussion outlined these plans, alongside emphasis on lifestyle changes being integral to managing her condition. Patient was informed and verbally consented to the use of an ambient scribe for clinic note documentation during this visit. Discussion Notes During our discussion, I emphasized the primary concern of tobacco use contributing to her COPD exacerbation. I advised on the significance of quitting smoking to improve her respiratory health and overall quality of life. The o ptions for using inhaler therapy were discussed again as potential benefits in controlling symptoms. We agreed to maintain her current regimen of Zetia and atorvastatin alongside amlodipine, and I encouraged reassessment through scheduled testing next year. I addressed her elevated vitamin B12, recommending a reduced dosage, and clarified the non-urgency of current thyroid findings. We explored hydration needs, encouraging more water intake, and reviewed her recent history of loss of smell post-COVID, reassuring her of the possible gradual recovery over time. Her next follow-up visit was prearranged for six months with anticipatory guidance provided. Patient Instructions - Try to stop smoking as soon as possible to help your breathing and health. - Continue taking amlodipine, Zetia, and atorvastatin as prescribed. - Reduce vitamin B12 supplements to once a week for now. - Drink more water, aim for six glasses a day. - Do blood work in February 2025. - Follow up in six months.
== END 2025-03-18 09:58 | disposition home or self-care (01) ==
LOC: HO.HMCH 09:16
PROVIDERS: PCP Internal Medicine; Visit Provider Internal Medicine
DX: Z72.0 Tobacco use (principal); J44.9 Chronic obstructive pulmonary disease, unspecified; R63.6 Underweight; I10 Essential (primary) hypertension; E78.00 Pure hypercholesterolemia, unspecified

== ENCOUNTER → 2025-03-18 09:16 | Outpatient (BNVA) | payer MEDICARE, SELFPAY | PROVIDERS: PCP Internal Medicine; Visit Provider Internal Medicine | DX: J44.9 Chronic obstructive pulmonary disease, unspecified (principal); I10 Essential (primary) hypertension; R63.6 Underweight; E78.00 Pure hypercholesterolemia, unspecified; F17.210 Nicotine dependence, cigarettes, uncomplicated; Z86.16 Personal history of COVID-19 | CPT/HCPCS: 96127; 99212 ==

== ENCOUNTER 2025-03-29 08:50 | Outpatient (AMB) | payer MEDICARE, SELFPAY ==
--- NOTE | 2025-03-29 08:54 | A.OFFVIS_ITS ---
Vital Signs 03/29/25 08:55 Height 5 ft 3 in Weight 72 lb 4.986 oz BMI 12.8 BP 90/62 Blood Pressure Location Lt brachial Position Sitting Pulse 105 H Pulse Source Monitor Intake Visit Reasons: 1 yr f/up Intake Note: 1 yr f/up w/ekg Operating Room Scheduler Required: No Accompanied by: Self / Same As Patient Allergies No Known Allergies [No Known Allergies*] Allergy (Verified 03/18/25 09:47) Medication List - Last Reconciled 03/29/25 by Juancho Chester MD amlodipine 5 mg PO DAILY aspirin (Adult Low Dose Aspirin) 81 mg PO DAILY atorvastatin 80 mg PO DAILY cholecalciferol (vitamin D3) 25 mcg PO DAILY cyclobenzaprine 10 mg PO BEDTIME ezetimibe 10 mg PO DAILY folic acid 0.8 mg PO DAILY meloxicam 15 mg PO DAILY vitamin [id number] acid 1,000-400 mcg shaggy sublingual HPI Comments Details: 79-year-old female who is here for follow-up. She has background history of tobacco use and peripheral vascular disease. She had abdominal aortic aneurysm which was repaired percutaneously in the past. She has hypertension and continues to smoke. She is saying she is under lot of stress due to family reasons. She also has been losing weight unintentionally. Her blood pressure is low. She is slightly more tachycardic. [facility] Medical History (Updated 03/18/25 @ 09:55 by Camilo Quiñones MD) Osteoporosis Colonoscopy refused Mammogram declined Personal history of nicotine dependence Underweight Renal calculi Fracture, humerus Hypercholesterolemia HTN (hypertension) Carotid stenosis Osteoporosis (~2013) AAA (abdominal aortic aneurysm) Surgical History H/O tubal ligation History of cataract surgery History of AAA (abdominal aortic aneurysm) repair (~2019) Family History Father Medical history unknown Mother Cancer Brother No problems noted. Brother No problems noted. Brother No problems noted. Sister No problems noted. Sister No problems noted. Sister No problems noted. Daughter No problems noted. Daughter No problems noted. Daughter No problems noted. Social History Housing: Apartment Alcohol intake: current Alcohol intake frequency: holidays/special occasions only Patient Tobacco Use Status: Current everyday Tobacco user Tobacco use type: Cigarette Cigarette Packs Per Day: 0.5 Cigarettes Per Day: 10 Years Smoked: 50 +/- e-Cigarette/Vaping Use: Never Used Second Hand Smoke Exposure: Yes service: No Current occupational status: retired Cognitive needs: No Hearing needs: No Vision needs: Yes Review of Systems Const Denies chills, Denies fatigue, Denies fever(s), Denies frequent falls, Denies weakness, Denies weight gain and Denies weight loss ENT Denies dizziness Card Denies chest pain, Denies leg edema, Denies lightheadedness, Denies palpitations, Denies dyspnea and Denies dyspnea on exertion Resp Denies cough, Denies dyspnea and Denies dyspnea on exertion GI Denies hematochezia Musc Denies abnormal gait, Denies muscle weakness, Denies numbness, Denies radiating pain into limb and Denies tingling Neuro Denies abnormal gait, Denies dizziness, Denies frequent falls, Denies numbness, Denies tingling and Denies weakness Endo Denies fatigue and Denies palpitations Physical Exam Vital Signs: Last Vital Signs Pulse 105 H 03/29/25 08:55 BP 90/62 03/29/25 08:55 BMI result Body Mass Index 12.8 GENERAL APPEARANCE: in no acute distress, thin. SKIN: no suspicious lesions, warm and dry. HEART: no murmurs, regular rate and rhythm, S1, S2 normal. LUNGS: clear to auscultation bilaterally. ABDOMEN: normal, bowel sounds present, soft, nontender, nondistended. EXTREMITIES: no clubbing, cyanosis, or edema. PERIPHERAL PULSES: equal. NEUROLOGIC: nonfocal, alert and oriented. PSYCH: mood/affect full range. Office Procedures EKG Details: Sinus tachycardia 105 beats per minute, normal axis, anteroseptal infarct, ST-T changes lateral leads-consider ischemia, QTC 470 milliseconds [id number], Complete Assessment & Plan Assessment & Plan (1) Carotid stenosis: Comment: Ultrasound 06/16/20 Right ICA 50-79% stenosis, Left ICA 50-79%. , Code(s): I65.29 - Occlusion and stenosis of unspecified carotid artery Category: Medical Qualifiers: Laterality: bilateral Qualified Code(s): I65.23 - Occlusion and stenosis of bilateral carotid arteries (2) HTN (hypertension): Code(s): I10 - Essential (primary) hypertension Category: Medical Qualifiers: Hypertension type: essential hypertension Qualified Code(s): I10 - Essential (primary) hypertension Plan Pleasant 80 year female who is here for follow-up. She has background history of abdominal aortic aneurysm repair. She continues to smoke and does not have any intention of stopping. She has known hypertension and is currently on amlodipine but blood pressure is low. She also has been losing weight unintentionally. I think blood pressure is falling due to weight loss and some degree of dehydration. I have advised her to start drinking more water. I have advised her also to stop the amlo dipine. She is denying chest discomfort shortness of breath. She will see us back in 1 year. Thank you for allowing me to participate in the care of your patient. Please feel free to contact me if you have any questions. Medications: Discontinued amlodipine Discontinued Reason: None 5 mg PO DAILY 90 tabs 1RF Coding Level of Care Code Est Pt Level 3 (48459) Diagnoses Bilateral carotid artery stenosis I65.23 Laterality: bilateral Essential hypertension I10 Hypertension type: essential hypertension CPT Codes EKG - CPT: 00395-[id number], Complete ([id number])
[2025-03-29 08:55] VITALS: BP 90/62; PULSE 105; BMI 12.8
== END 2025-03-29 09:12 | disposition home or self-care (01) ==
LOC: HO.HCS 08:50
PROVIDERS: PCP Internal Medicine; Visit Provider Internal Medicine Cardiovascular Disease
DX: I65.23 Occlusion and stenosis of bilateral carotid arteries (principal); I10 Essential (primary) hypertension
CPT/HCPCS: 93010; 99213

== ENCOUNTER → 2025-03-29 08:50 | Outpatient (BNVA) | payer MEDICARE, SELFPAY | PROVIDERS: PCP Internal Medicine; Visit Provider Internal Medicine Cardiovascular Disease | DX: I10 Essential (primary) hypertension (principal); I65.23 Occlusion and stenosis of bilateral carotid arteries; R00.0 Tachycardia, unspecified; I51.7 Cardiomegaly; R94.31 Abnormal electrocardiogram [ECG] [EKG] | CPT/HCPCS: 93005; 99212 ==

== ENCOUNTER 2025-09-17 08:23 | Outpatient (AMB) | payer MEDICARE, SELFPAY ==
[2025-09-17 08:28] VITALS: BP 136/90; PULSE 112; TEMP 36.3; O2SAT 95; BMI 12.8
--- NOTE | 2025-09-17 08:33 | A.OFFPC_ITS ---
Vital Signs 09/17/25 08:28 09/17/25 08:48 Height 5 ft 3 in Weight 72 lb 4 oz BMI 12.8 BP 136/90 H 158/110 H Blood Pressure Location Lt brachial Lt brachial Position Sitting Sitting Pulse 112 H Pulse Source Pulse Oximeter Temp 97.3 F Temp Source Temporal Artery Scan Pulse Oximetry (%) 95 Oxygen Delivery Method Room Air Intake Visit Reasons: COPD Allergies No Known Allergies (No Known Allergies*) Allergy (Verified 09/17/25 08:33) Medication List - Last Reconciled 09/17/25 by Camilo Quiñones MD amlodipine 2.5 mg PO DAILY aspirin (Adult Low Dose Aspirin) 81 mg PO DAILY atorvastatin 80 mg PO DAILY cholecalciferol (vitamin D3) 25 mcg PO DAILY ezetimibe 10 mg PO DAILY folic acid 0.8 mg PO DAILY vitamin U86-qsjka acid 1,000-400 mcg shaggy sublingual Tobacco use date assessed: 09/17/25 Fall risk assessment: No Falls in past year Last assessed Fall Risk: 09/17/25 Dental Screening Dental Screen Date: 09/17/25 Did you have a dental visit in the last 12 months?: No Did you have a dental problem in the last 6 months where you did not have access to dental care?: No Was dental information given to patient?: No [facility] Medical History Osteoporosis Colonoscopy refused Mammogram declined Personal history of nicotine dependence Underweight Renal calculi Fracture, humerus Hypercholesterolemia HTN (hypertension) Carotid stenosis Osteoporosis (~2013) AAA (abdominal aortic aneurysm) Surgical History H/O tubal ligation History of cataract surgery History of AAA (abdominal aortic aneurysm) repair (~2019) Family History Father Medical history unknown Mother Cancer Brother No problems noted. Brother No problems noted. Brother No problems noted. Sister No problems noted. Sister No problems noted. Sister No problems noted. Daughter No problems noted. Daughter No problems noted. Daughter No problems noted. Social History Housing: Apartment Alcohol intake: current Alcohol intake frequency: holidays/special occasions only Patient Tobacco Use Status: Current everyday Tobacco user Tobacco use type: Cigarette Cigarette Packs Per Day: 0.5 Cigarettes Per Day: 10 Years Smoked: 50 +/- e-Cigarette/Vaping Use: Never Used Second Hand Smoke Exposure: Yes service: No Current occupational status: retired Cognitive needs: No Hearing needs: No Vision needs: Yes Questionnaire PHQ-9 Over the last 2 weeks, how often have you been bothered by any of the following problems? 1. Little interest or pleasure in doing things: not at all 2. Feeling down, depressed, or hopeless: not at all 3. Trouble falling or staying asleep, or sleeping too much: not at all 4. Feeling tired or having little energy: more than half the days 5. Poor appetite or overeating: more than half the days 6. Feeling bad about yourself - or that you are a failure or have let yourself or your family down: not at all 7. Trouble concentrating on things, such as reading the newspaper or watching television: not at all 8. Moving or speaking so slowly that other people could have noticed. Or the opposite - being so fidgety or restless that you have been moving around a lot m ore than usual: not at all 9. Thoughts that you would be better off or of hurting yourself in some way: not at all Total score: 4 Source: Developed by Drs. Ramesh Youngblood, Melyssa Bergeron, Oliver Hendricks and colleagues, with an educational saw from [employer]. Thrive Questionnaire Date Thrive assessed: 03/18/25 I am a: Patient What is your living situation today?: I have a steady place to live Within the past 12 months, did the food you bought not last and you didn't have the money to get more?: I choose not to answer this question Within the past 12 months, did you worry whether your food would run out before you got money to buy more?: I choose not to answer this question Do you have trouble paying for medicines?: No Do you have trouble getting transportation to medical appointments?: No Do you have trouble paying your heating and electricity bill?: No Do you have trouble taking care of your child, family member or friend?: No Do you have trouble with day-to-day activities such as bathing, preparing meals, shopping, managing finances, etc.?: No Are you currently unemployed and looking for a job?: No Are you interested in more education?: No Please select the resources that you would like help with: None Currently or been in a relationship where the following occur: No concerns reported THRIVE Score: 0 AUDIT C Alcohol Use Questionnaire (AUDIT-C) 1. How often do you have a drink containing alcohol?: Never 3. How often do you have six or more drinks on one occasion?: Never Total Score: 0 MESSI-7 AMB Questionnaire MESSI-7 Date MESSI - 7 assessed: 03/18/25 Feeling nervous, anxious, or on edge: 0 = Not at all Not being able to stop or control worryin = Not at all Worrying too much about different things: 0 = Not at all Trouble relaxin = Not at all Being so restless that it is hard to sit still: 0 = Not at all Becoming easily annoyed or irritable: 0 = Not at all Feeling afraid as if something awful might happen: 0 = Not at all Total MESSI-7 score (0-4 normal; 5-9 mild; 10-14 moderate; 15-21 severe): 0 Source: Developed by Drs. Ramesh Youngblood, Melyssa Bergeron, Oliver Hendricks and colleagues, with an educational saw from [employer]. Physical exam (Primary Care) Vital Signs: Last Vital Signs Temp 97.3 F 09/17/25 08:28 Pulse 112 H 09/17/25 08:28 BP 158/110 H 09/17/25 08:48 Pulse Ox 95 09/17/25 08:28 Oxygen Delivery Method Room Air 09/17/25 08:28 BMI result Body Mass Index 12.8 Tobacco/Smoking Status: Tobacco use Status Tobacco use date assessed 09/17/25 09/17/25 08:34 Patient Tobacco Use Status Current everyday Tobacco 09/17/25 08:34 Tobacco use type Cigarette 09/17/25 08:34 e-Cigarette/Vaping Use Never Used 09/17/25 08:34 PHQ-9: PHQ-9 Score PHQ-9: Total score 4 09/17/25 08:44 Thrive Assessment: Date of Thrive Assessment Date Thrive assessed 03/18/25 09/17/25 08:34 Currently or been in a relationship where the following occur: No concerns reported Const General: alert; No acute distress Eyes Conjunctivae: conjunctivae normal Resp Auscultation: clear to auscultation bilaterally Cardio Rate: regular rate Rhythm: regular rhythm GI Inspection: Yes normal to inspection Extrem General: Yes normal to inspection and No edema Coding Level of Care Code Est Pt Level 4 (82029) Complex EM visit Add On G2211 Diagnoses Essential hypertension I10 Hypertension type: essential hypertension Abdominal aortic aneurysm (AAA) without rupture, unspecified part I71.40 Abdominal aorta location: unspecified Presence of rupture: without rupture Hypercholesterolemia E78.00 Osteoporosis M81.0 COPD (chronic obstructive pulmonary disease) J44.9 Tobacco abuse Z72.0 Assessment & Plan Assessment & Plan (1) HTN (hypertension): Code(s): I10 - Essential (primary) hypertension Category: Medical Qualifiers: Hypertension type: essential hypertension Qualified Code(s): I10 - Essential (primary) hypertension Plan: Blood pressure has been on the low side and was taken off amlodipine in March. Patient is advised to monitor blood pressure (2) AAA (abdominal aortic aneurysm): Comment: Endovascular aortic aneurysm repair with iliac angioplasty repair by Dr Barber. December 2019 Code(s): I71.4 - Abdominal aortic aneurysm, without rupture Category: Medical Qualifiers: Abdominal aorta location: unspecified Presence of rupture: without rupture Qualified Code(s): I71.40 - Abdominal aortic aneurysm, without rupture, unspecified Plan: Control the cholesterol, weight, blood pressure, (3) Hypercholesterolemia: Code(s): E78.00 - Pure hypercholesterolemia, unspecified Category: Medical Plan: Avoid fried foods, chicken skin, eggs, butter margarine, pastries and meat. Be it pork or beef they have a lot of cholesterol on Zetia 10 mg once a day atorvastatin 80 mg once a day (4) Osteoporosis: Onset Date: ~2013 Comment: (Bone Dexa Lumbar T-score -4.1 09/09/18) November 2022 Code(s): M81.0 - Age-related osteoporosis without current pathological fracture Category: Medical Plan: Reminded about having another bone density. (5) COPD (chronic obstructive pulmonary disease): Code(s): J44.9 - Chronic obstructive pulmonary disease, unspecified Category: Medical Plan: Patient is strongly advised to stop smoking! Patient does not require any inhalers (6) Tobacco abuse: Comment: Seven cigarettes a day January 2023, CT scan August 2023, 6 smokes 05/2024. 7-10 (02/2025) Code(s): Z72.0 - Tobacco use Category: Medical Plan: Patient is strongly advised to stop smoking summation point Plan History of Present Illness The patient is a 80-year-old female presenting for a follow-up visit. She has a history of an abdominal aortic aneurysm that was repaired, and she also has osteoporosis, with the last bone density test conducted in November 2022. The patient has carotid artery stenosis, with the last test performed in 2019, a nd she is also managing hypertension and hypercholesterolemia. She is a smoker with Chronic Obstructive Pulmonary Disease (COPD) and was advised to stop smoking. Her blood pressure medication regimen was adjusted, with amlodipine being stopped due to low blood pressure readings, and she was advised to monitor her blood pressure at home. Recent blood work from February 2025 showed a normal blood count with a mild elevation in white blood cells, stable renal function, mildly elevated blood sugar, and liver enzymes. Her LDL cholesterol was 79 mg/dL, and she had low B12 levels with mildly elevate d TSH. Health Maintenance - Bone density screening reminder - Smoking cessation strongly advised Social History - Smoking: Patient is a smoker, advised to quit - Nutrition: Patient reports snacking throughout the day rather than eating full meals Review of Systems - Cardiovascular: Denies chest pain - Respiratory: Reports smoking, denies need for inhalers - Gastrointestinal: Reports regular bowel movements - Genitourinary: Reports normal urination - General: Reports good appetite, snacks throughout the day Physical Exam - Cardiovascular: Heart auscultation performed, no abnormalities noted - Respiratory: Deep breathing assessed, no abnormalities noted Results - Labs: Normal blood count with mild elevation in white blood cells, stable renal function, mildly elevated blood sugar and liver enzymes, LDL cholesterol at 79 mg/dL, low B12, mildly elevated TSH Plan Patient was informed and verbally consented to the use of an ambient scribe for clinic note documentation during this visit. 1. Hypertension The patient's blood pressure has been low, leading to the discontinuation of amlodipine in March. She is advised to monitor her blood pressure at home and has been prescribed a reduced dose of amlodipine at 2.5 mg to better control her blood pressure. 2. Hypercholesterolemia The patient's LDL cholesterol is at 79 mg/dL, and she is on atorvastatin 80 mg once daily as part of her cholesterol management plan. 3. Chronic Obstructive Pulmonary Disease (Copd) The patient is a smoker and has been strongly advised to quit smoking to manage her COPD. She does not currently require inhalers. 4. Osteoporosis The patient was reminded to have another bone density screening to monitor her osteoporosis. Discussion Notes During the visit, I discussed with the patient the importance of monitoring her blood pressure at home and adjusting her medication as needed. We reviewed her cholesterol management plan, emphasizing the continuation of atorvastatin. I strongly advised her to quit smoking to improve her COPD and overall health. Additionally, I reminded her about the need for a bone density screening to monitor her osteoporosis. We agreed on a follow-up plan to reassess her condition and adjust treatment as necessary. Patient Instructions - Monitor blood pressure at home regularly. - Continue taking atorvastatin 80 mg once daily. - Strongly consider quitting smoking to improve health. - Schedule a bone density screening. Orders: Orders Complete Blood Count Auto Diff Today I10 - Essential (primary) hypertension Comprehensive Met. Panel 3 Months I10 - Essential (primary) hypertension Free T4 (Free Thyroxine) 3 Months I10 - Essential (primary) hypertension Thyroid Stimulating Hormone 3 Months I10 - Essential (primary) hypertension Vitamin D 25-OH Total 3 Months I10 - Essential (primary) hypertension Hemoglobin A1c 3 Months I10 - Essential (primary) hypertension Lipid Panel 3 Months E78.00 - Pure hypercholesterolemia, unspecified, I10 - Essential (primary) hypertension Vitamin B12 and Folate 3 Months I10 - Essential (primary) hypertension Medications: New amlodipine 2.5 mg PO DAILY 30 tabs 3RF I10 - Essential (primary) hypertension
[2025-09-17 08:48] VITALS: BP 158/110
== END 2025-09-17 08:56 | disposition home or self-care (01) ==
LOC: HO.HMCH 08:24
PROVIDERS: PCP Internal Medicine; Visit Provider Internal Medicine
DX: I10 Essential (primary) hypertension (principal); J44.9 Chronic obstructive pulmonary disease, unspecified; I71.40 Abdominal aortic aneurysm, without rupture, unspecified; E78.00 Pure hypercholesterolemia, unspecified; M81.0 Age-related osteoporosis without current pathological fracture; Z72.0 Tobacco use

== ENCOUNTER → 2025-09-17 08:23 | Outpatient (BNVA) | payer MEDICARE, SELFPAY | PROVIDERS: PCP Internal Medicine; Visit Provider Internal Medicine | DX: I10 Essential (primary) hypertension (principal); I71.40 Abdominal aortic aneurysm, without rupture, unspecified; E78.00 Pure hypercholesterolemia, unspecified; J44.9 Chronic obstructive pulmonary disease, unspecified; M81.0 Age-related osteoporosis without current pathological fracture; F17.210 Nicotine dependence, cigarettes, uncomplicated | CPT/HCPCS: 96127; 99212 ==